=== PATIENT | male | born 1985 | race Caucasian/White ===

== ENCOUNTER 2021-12-04 08:11 | Outpatient (CLI) | payer OTHER, SELFPAY ==
--- NOTE | 2021-12-04 08:14 | CT_ITS ---
WS: [id number] CT LUMBAR SPINE, noncontrast. HISTORY: CHRONIC LOW BACK PAIN TECHNIQUE: Contiguous 2.5 mm axial imaging are performed. Sagittal and coronal reformats are submitte d and reviewed. [facility] CT [facility] one of these dose optimization techni ques: automated exposure control; mA and/or kV adjustment per patient size (includes targeted exams w here dose is matched to clinical indication); or iterative reconstruction. IV contrast: None DLP: 1786.53 mGy.cm COMPARISON: None available. Mild straightening of the normal lumbar lordosis. No lumbar vertebral body fracture. Unilateral RIGHT L5-S1 lumbar fusion. Interbody spacer at L5-S1 with moderate narrowing of the disc space. L1-2: Normal. L2-3: Normal. L3-4: Normal. L4-5: Mild annular disc bulging. Mild ligamentum flavum and facet arthritis. Mild widening of the fac et joints. Asymmetric disc bulging is encroaching into the LEFT lateral thecal sac and LEFT foramen w ith contact on the traversing LEFT L5 nerve root. Mild LEFT foraminal and subarticular recess stenosi s. L5-S1: Hypertrophic bone formation extends from RIGHT S1 towards the RIGHT lumbar vertebral body. The re is significant bony hypertrophy encroaching towards L5 from S1 level causing a significant narrowi ng of the RIGHT L5-S1 facet joint. Mild disc bulging of L5. Moderate osseous RIGHT foraminal narrowin g. Marked degenerative changes at the RIGHT L5-S1 facet joint with bony hypertrophy. Nonobstructing LEFT renal calculi. CT/CT lumbar spine wo con* [id number] IMPRESSION: 1. RIGHT unilateral L5-S1 posterior lumbar fusion. 2. Moderate RIGHT bony foraminal narrowing at L5-S1. Partial lumbarization of the RIGHT L5-S1 vertebral body. 3. Mild LEFT foraminal subarticular recess stenosis at L4-5.
== END 2021-12-04 08:12 | disposition home or self-care (01) ==
LOC: RAD 08:12
PROVIDERS: Visit Provider Emergency Medicine Emergency Medical Services
DX: M48.00 Spinal stenosis, site unspecified (principal)
CPT/HCPCS: 72131

== ENCOUNTER 2023-06-26 06:00 | Outpatient (RCR) | payer OTHER, SELFPAY | END 2023-07-07 23:59 | disposition home or self-care (01) | LOC: SPT 06:00 | PROVIDERS: Visit Provider Family Medicine | DX: M54.9 Dorsalgia, unspecified (principal) | CPT/HCPCS: 97110; 97161 ==

== ENCOUNTER 2023-07-08 06:00 | Outpatient (RCR) | payer OTHER, SELFPAY | END 2023-07-22 23:59 | disposition home or self-care (01) | LOC: SPT 06:00 | PROVIDERS: Visit Provider Family Medicine | DX: M54.9 Dorsalgia, unspecified (principal) | CPT/HCPCS: 97110 ==

== ENCOUNTER 2023-07-18 11:36 | Inpatient (IN) | payer OTHER, SELFPAY ==
[2023-07-18] VITALS (11 sets, daily range): BP systolic 111–155; BP diastolic 74–110; PULSE 88–134; RESP 16–19; TEMP 36.4–36.8; O2SAT 91–97; BMI 28.7; BMI 28.4
--- NOTE | 2023-07-18 11:54 | CT_ITS ---
WS: [id number] CT ABDOMEN AND PELVIS WITH CONTRAST HISTORY: abd pain TECHNIQUE: Imaging performed of the abdomen and pelvis with IV contrast. Single phase imaging of the abdomen. Coronal and sagittal reformats are submitted. All CT scans at [facility] use at [address] one of these dose optimization techniques: automated exposure control; mA and/or kV adjustment per patient size (includes targeted exams where dose is matched to clinical indication); or iterative re construction. IV CONTRAST: Omnipaque 350; 100 mL IV. Oral contrast: No DLP: 954.43 mGy.cm COMPARISON: None available. Lower thorax: Lung bases are clear. Heart is normal size. No hiatal hernia. Liver/biliary system: Normal size liver. There is a small amount of ascites adjacent to the RIGHT lob e of the liver. Gallbladder: Normal. No gallstones or wall thickening. No pericholecystic fluid. Pancreas: Normal size pancreas and pancreatic duct. No adjacent inflammation. Spleen: Normal size spleen. No mass or infarct. Adrenal glands: Normal. Right kidney: Normal. Left kidney: No obstruction. 10 mm cyst. Aorta: Normal. Lymphadenopathy: None. Free fluid: There is a small amount of free fluid adjacent to the liver and also within the pelvis. T here are a few small pockets of fluid within the central mesentery. GI tract: Stomach is nondistended. Fluid-filled small bowel loops measuring up to 2.5 cm. There is a significant change in caliber in the proximal to mid small bowel and the distal small bowel suggestin g high-grade obstruction. Site of obstruction is not definitely identified. There is a focal area of fecalization within the RIGHT small bowel. This is often seen within at the site of the obstruction. There is also adjacent fluid within the mesentery. The colon is collapsed. No free air. Abdominal wall: Unremarkable abdominal wall. No hernia. Pelvis: Small amount of free fluid in the pelvis. Nondistended urinary bladder. Bones: Postoperative changes at L5-S1. IMPRESSION: 1. Moderate small bowel obstruction. There is a significant change in caliber of the mid and distal small bowel. The site of the obstruction is not definitely identified but there is a loop containing fecalization of small bowel in the RIGHT abdomen which is often seen at the transition site. There ar e also several pockets of mesenteric fluid in the RIGHT abdomen which may indicate the site of the ob struction. 2. Small amount of free fluid in the pelvis and along the RIGHT lobe of the liver.
--- NOTE | 2023-07-18 12:05 | ED_ITS ---
HPI - Abdominal Pain 2 General: Chief Complaint: Abdominal Pain Stated Complaint: abd pain Time Seen by Provider: 07/18/23 11:54 Source: patient Mode of arrival: ambulatory Limitations: no limitations History of Present Illness: 38-year-old male states he has been havi ng epigastric abdominal pain since this morning. He states his pain is sharp in nature rates it a 8 out of 10. He states had a history of gastritis he is closely getting scheduled for scope. He denies any fevers denies any worsening proving factors. Associated Symptoms: Denies chills, diarrhea, fever(s), nausea and vomiting Review of Systems 2 Const: Denies: fever(s), chills, body aches or change in appetite ENMT: Denies: throat pain or dental pain Card: Denies: chest pain Resp: Denies: dyspnea GI: Reports: abdominal pain; Denies: nausea, vomiting or diarrhea Musc: Denies: neck pain or back pain Skin/Breast: Denies: rash Neuro: Denies: headache(s) Physical Exam 2 Const: COMMON NORMALS: no acute distress, patient oriented x3 and healthy appearing HENMT: COMMON NORMALS: normocephalic and atraumatic HEAD & SCALP: n ormocephalic and atraumatic Neck/C-Spine: COMMON NORMALS: full ROM and supple Chest: COMMONS NORMALS: normal inspection of the chest Resp: COMMON NORMALS: normal respiratory effort Cardio: COMMON NORMALS: regular rate, regular rhythm and No murmurs present (Cardio) RATE: regular rate RHYTHM: regular rhythm GI: COMMON NORMALS: Normal to inspection, nondistended, normoactive bowel sounds present, Soft to palpation and no masses PALPATION: Yes Soft to palpation OTHER: epigastric tenderness Extremity: COMMON NORMALS: normal to inspection and full ROM Neuro: COMMON NORMALS: patient oriented x3, moves all extremities and no focal motor deficits Psych: COMMON NORMALS: mental status grossly normal, Normal thought process present and cooperative THOUGHT PROCESS: Normal thought process present Skin: COMMON NORMALS: no rashes or lesions noted and no wounds GENERAL SKIN EXAM: no rashes or lesions noted Course 2 Vital Signs: Vital signs: Vital Signs Temperature 97.5 F L 07/18/23 11:46 Pulse Rate 134 H 07/18/23 11:46 Respiratory Rate 17 07/18/23 12:20 Blood Pressure 111/80 07/18/23 11:46 Pulse Oximetry 93 07/18/23 12:20 Oxygen Delivery Me thod Room Air 07/18/23 11:46 MDM - Abdominal Pain Medical Decision Making Patient presents here with abdominal pain he was found to have a small bowel obstruction we will place NG tube up spoke to general surgery low hospitalist will admit at this time. Medical Records I reviewed the patient's medical records. Lab Data I reviewed the patient's lab results. 07/18/23 12:16 07/18/23 12:16 Labs/Radiology: Laboratory Results WBC 14.72 10^3/uL (3.29-11.43) H 07/18/23 12:16 RBC 6.70 10^6/uL (3.85-5.65) H 07/18/23 12:16 Hgb 19.10 g/dL (11.27-16.99) H 07/18/23 12:16 Hct 54.9 % (37-53) H 07/18/23 12:16 MCV 81.9 fl (82-101) L 07/18/23 12:16 MCH 28.5 pg (27-33) 07/18/23 12:16 MCHC 34.8 g/dL (30-55) 07/18/23 12:16 RDW 12.6 % (12.1-15.1) 07/18/23 12:16 Plt Count 434 10^3/cmm (157-399) H 07/18/23 12:16 MPV 9.0 fL (7.4-10.4) 07/18/23 12:16 Neut % (Auto) 75.1 % 07/18/23 12:16 Lymph % (Auto) 16.2 % 07/18/23 12:16 Toole % (Auto) 7.1 % 07/18/23 12:16 Eos % (Auto) 0.5 % 07/18/23 12:16 Baso % (Auto) 0.7 % 07/18/23 12:16 Neut # (Auto) 11.05 10^3/uL (1.8-7.7) H 07/18/23 12:16 Lymph # (Auto) 2.4 10^3/uL (0.8-4.8) 07/18/23 12:16 Toole # (Auto) 1.1 10^3/uL (0.2-0.9) H 07/18/23 12:16 Eos # (Auto) 0.1 10^3/uL (0.0-0.8) 07/18/23 12:16 Baso # (Auto) 0.1 10^3/uL (0.0-0.1) 07/18/23 12:16 Nucleated RBC % (auto) 0 % 07/18/23 12:16 Nucleated RBCs # 0.0 /100WBC 07/18/23 12:16 Sodium 137 mmol/L (136-145) 07/18/23 12:16 Potassium 4.4 mmol/L (3.5-5.1) 07/18/23 12:16 Chloride 97 mmol/L (98-107) L 07/18/23 12:16 Carbon Dioxide 23 mmol/L (22-29) 07/18/23 12:16 Anion Gap 21.4 (5-19) H 07/18/23 12:16 BUN 18 mg/dL (6-20) 07/18/23 12:16 Creatinine 1.1 mg/dL (0.7-1.2) 07/18/23 12:16 GFR Calculation 74.5 mL/min (90-130) L 07/18/23 12:16 Glucose 122 mg/dL (65-115) H 07/18/23 12:16 Calculated Osmolality 287 mOsm/kg (285-295) 07/18/23 12:16 Calcium 10.1 mg/dL (8.5-10.5) 07/18/23 12:16 Total Bilirubin 1.4 mg/dL (0.15-1.2) H 07/18/23 12:16 AST 32 U/L (0-40) 07/18/23 12:16 ALT 58 U/L (0-41) H 07/18/23 12:16 Alkaline Phosphatase 108 U/L (40-130) 07/18/23 12:16 Total Protein 8.4 g/dL (6.6-8.7) 07/18/23 12:16 Albumin 4.8 g/dL (3.5-5.2) 07/18/23 12:16 Globulin 3.6 g/dL (1.3-4.6) 07/18/23 12:16 Lipase 43 U/L (13-60) 07/18/23 12:16 All radiology interpretation(s) finalized by discharge Discharge Plan Discharge Patient Disposition: Admitted As Inpatient Clinical Impression: Small bowel obstruction Condition: Stable Coding Level of Care Code ED [employer] for Robert Escobar
[2023-07-18] MEDS: ondansetron 2 mg/ML SDV 2 mL 4 MG IVP (12:20)
[2023-07-18] MEDS: morphine 4 mg/mL SDV 1 mL IVP (12:20)
[2023-07-18] MEDS: sodium chloride 0.9% 1,000 ML 999 ML IV (12:24)
[2023-07-18 12:46] LABS: Basophils # 0.1 10^3/uL (0.0-0.1); Basophils % 0.7 %; Eosinophils # 0.1 10^3/uL (0.0-0.8); Eosinophils % 0.5 %; Hematocrit 54.9 % (37-53); Lymphocytes # 2.4 10^3/uL (0.8-4.8); Lymphocytes % 16.2 %; Mean Corpuscular HGB Conc 34.8 g/dL (30-55); Mean Corpuscular Hemoglobin 28.5 pg (27-33); Mean Corpuscular Volume 81.9 fl (82-101); Monocytes # 1.1 10^3/uL (0.2-0.9); Monocytes % 7.1 %; Neutrophils # 11.05 10^3/uL (1.8-7.7); Neutrophils % 75.1 %; Nucleated Red Blood Cells % 0 %; Platelet Count 434 10^3/cmm (157-399); Red Cell Distribution Width 12.6 % (12.1-15.1); White Blood Count 14.72 10^3/uL (3.29-11.43)
[2023-07-18 13:06] LABS: Alanine Aminotransferase 58 U/L (0-41); Albumin Level 4.8 g/dL (3.5-5.2); Alkaline Phosphatase 108 U/L (40-130); Blood Urea Nitrogen 18 mg/dL (6-20); Calcium 10.1 mg/dL (8.5-10.5); Carbon Dioxide 23 mmol/L (22-29); Chloride 97 mmol/L (98-107); Creatinine Clr Calc Pharmacy 108.4281; Globulin 3.6 g/dL (1.3-4.6); Glomerular Filtration Rate 74.5 mL/min (90-130); Glucose 122 mg/dL (65-115); Lipase 43 U/L (13-60); Osmolality Calculated 287 mOsm/kg (285-295); Sodium 137 mmol/L (136-145); Total Bilirubin 1.4 mg/dL (0.15-1.2); Total Protein 8.4 g/dL (6.6-8.7)
[2023-07-18] MEDS: iohexol 350 mg/mL 500 mL Btl (per mL) IV (13:07)
[2023-07-18 13:10] LABS: Anion Gap 21.4 (5-19); Aspartate Amino Transferase 32 U/L (0-40); Potassium 4.4 mmol/L (3.5-5.1)
[2023-07-18] MEDS: LORazepam 2 mg/mL INJ 10 mL MDV 1 MG IVP (13:49)
--- NOTE | 2023-07-18 14:23 | XR_ITS ---
WS: [id number] Portable AP upright chest, 07/18/2023 Clinical Data: NG TUBE PLACEMENT Comparison: None. Findings: The nasogastric tube appears to end within the fundus of the stomach. The heart and lungs s how no acute change. Impression: Insertion of nasogastric tube ending in the fundus of stomach.
[2023-07-18 15:10] LABS: Blood Urine 2+ (Negative); Glucose Urine UA Norm (Normal); Ketones Urine 1+ (Negative); Protein Urine 1+ (Negative); Urine Appearance Clear (CLEAR); Urine Color Yellow (Yellow); pH Urine 7 (5-7)
[2023-07-18] MEDS: labetalol 5 mg/mL SDV 20mL 10 MG IVP (15:10)
[2023-07-18 15:11] LABS: Add Urine Culture? No; Add Urine Microscopic? YES; Bilirubin Urine 1+ (Negative); Leukocyte Esterase Urine Trace (Negative); Nitrate Urine Not Tested (Negative); RBC Urine 0-4 /hpf (0-2); Urobilinogen Urine Neg (Negative)
--- NOTE | 2023-07-18 15:48 | P.HP_ITS ---
Providers/Chief Complaint 2 Admitting Physician: Sarah Manley MD Chief Complaint: abd pain History of Present Illness Nargis Hampton is a 38 year old male who presents for evaluation of abdominal pain that started this morning. Patient reports the pain is in the epigastric area nonradiating, constant and associated with nausea and vomiting. He denies fever, chills, chest pain, melena, hematemesis, diarrhea, constipation or any other symptoms. He reports that his last bowel movement was yesterday. In the ER, CT of the chest abdomen pelvis shows evidence of small bowel obstruction. NG tube was placed in the ER. General surgery consulted. Review of Systems 2 General: Reports: 10 or more systems reviewed and unremarkable except in HPI and below Const: Denies: fever(s), chills, body aches or change in appetite ENMT: Denies: throat pain or dental pain Card: Denies: chest pain Resp: Denies: dyspnea GI: Reports: abdominal pain, nausea and vomiting; Denies: diarrhea Musc: Denies: neck pain or back pain Skin/Breast: Denies: rash Neuro: Denies: headache(s) Medications/Allergies Home Medications Medication Instructions Recorded Confirmed Last Taken Type capsaicin 0.075 % topical cream 1 applic topical TID PRN Pain 07/18/23 07/18/23 Unknown History cetirizine 10 mg tablet 10 mg PO DAILY 07/18/23 07/18/23 Unknown History clonazepam 0.5 mg tablet 0.5 mg PO BID PRN Anxiety 07/18/23 07/18/23 Unknown History clotrimazole 1 % topical solution 1 applic topical TID 07/18/23 07/18/23 Unknown History divalproex 500 mg tablet,extended 1,500 mg PO BEDTIME 07/18/23 07/18/23 Unknown History release 24 hr ergocalciferol (vitamin D2) 1,250 1,250 mcg PO Q7D 07/18/23 07/18/23 Unknown History mcg (50,000 unit) capsule fluticasone propionate 50 1 spray intranasal DAILY 07/18/23 07/18/23 Unknown History mcg/actuation nasal spray,suspension lidocaine 5 % topical patch 1 patch topical DAILY 07/18/23 07/18/23 Unknown History meloxicam 7.5 mg tablet 7.5 mg PO DAILY 07/18/23 07/18/23 Unknown History methocarbamol 750 mg tablet 750 mg PO QID PRN Muscle Spasm 07/18/23 07/18/23 Unknown History pantoprazole 20 mg tablet,delayed 20 mg PO DAILY 07/18/23 07/18/23 Unknown History release zinc oxide 40 % topical ointment 1 applic topical 6XD PRN Rash 07/18/23 07/18/23 Unknown History Allergies Allergy/AdvReac Type Severity Reaction Status Date / Time No Known Allergies Allergy Verified 07/18/23 11:48 Vitals/I&O/Wt Last Vital Signs Temp 97.5 F L 07/18/23 11:46 Pulse 101 H 07/18/23 15:11 Resp 19 H 07/18/23 15:11 BP 132/104 07/18/23 15:11 Pulse Ox 91 07/18/23 15:11 O2 Del Method Room Air 07/18/23 15:11 Weight last 48 hrs Weight 96.162 kg Physical Exam 2 Const: COMMON NORMALS: no acute distress, patient oriented x3 and alert HENMT: COMMON NORMALS: normocephalic, atraumatic, external ears normal, Normal external nose present, moist oral mucous membranes and oropharynx normal HEAD & SCALP: normocephalic and atraumatic NOSE: Normal external nose present E XTERNAL EAR: Yes external ears normal Eye: COMMON NORMALS: Equal, round and reactive pupils present, EOMs intact bilaterally, conjunctivae normal and no scleral icterus CONJUNCTIVA: Yes conjunctivae normal PUPIL: Yes Equal, round and reactive pupils present Neck/C-Spine: COMMON NORMALS: full ROM, no lymphadenopathy and no JVD Chest: COMMONS NORMALS: normal inspection of the chest Resp: COMMON NORMALS: normal respiratory effort and clear to auscultation bilaterally AUSCULTATION: clear to auscultation bilaterally OTHER: No wheezes or crcakles Cardio: COMMON NORMALS: no JVD, regular rate, regular rhythm, S1 normal heart sound present and S2 normal heart sound present RATE: regular rate RHYTHM: regular rhythm HEART SOUNDS: S1 normal heart sound present and S2 normal heart sound present GI: PALPATION: Yes Soft to palpation OTHER: Mildly distended, soft, epigastric tenderness , no rebound or guarding, bowel sounds hypoactive Extremity: COMMON NORMALS: normal to inspection and no pedal edema Neuro: COMMON NORMALS: patient oriented x3 SENSORIUM/ORIENTATION: Yes alert OTHER: No gross focal deficits Data 07/18/23 12:16 07/18/23 12:16 A&P Assessment and plan (1) Small bowel obstruction: - Patient presented with abdominal pain and was found to have small bowel obstruction. Patient does have a history of appendectomy only in the past. - -General surgery consulted -NG tube in place for bowel decompression , patient will be kept n.p.o. -Continue supportive care with IV fluids, antiemetics, analgesia -Serial abdominal exams -Continue to monitor (2) History of gastroesophageal reflux (GERD): - Patient is on p.o. Protonix at home -He reports that he is scheduled for endoscopy outpatient -Give IV protonix for now (3) History of posttraumatic stress disorder (PTSD): - Continue depakote Attestations 2 Medical Necessity Statement*: Patient requires inpatient hospitalization for small bowel obstruction. He requires IV fluids, IV pain medications , NG tube decompression and surgical evaluation as appropriate Coding Level of Care Code Acute Code for [facility] Fwd Diagnoses Small bowel obstruction K56.609 History of gastroesophageal reflux (GERD) Z87.19 History of posttraumatic stress disorder (PTSD) Z86.59
--- NOTE | 2023-07-18 16:15 | PC.NURSE ---
Dr. Manley gave verbal orders while in patients room to do a 500 ml bolus of Ns then changed fluids to D5 45 ns. Also to discontinue lovenox until Dr. Porras sees patient. Will do SCDs
[2023-07-18] MEDS: sodium chloride 0.9% 500 ML IV (17:15)
[2023-07-18] MEDS: pantoprazole 40 mg SDV IVP (17:16)
[2023-07-18] MEDS: morphine 4 mg/mL SDV 1 mL 1 MG IVP ×2 (19:42→21:55)
[2023-07-18] MEDS: dextrose 5%-sod chloride 0.45% 1,000 ML 100 ML IV (22:00)
[2023-07-19] VITALS (14 sets, daily range): BP systolic 114–141; BP diastolic 76–92; PULSE 61–93; RESP 16–18; TEMP 36.6–37.2; O2SAT 92–95
[2023-07-19] MEDS: morphine 4 mg/mL SDV 1 mL 1 MG IVP (00:25)
[2023-07-19] MEDS: morphine 4 mg/mL SDV 1 mL 2 MG IVP ×4 (02:24→11:10)
[2023-07-19 03:11] LABS: Basophils # 0.1 10^3/uL (0.0-0.1); Basophils % 0.5 %; Eosinophils # 0.1 10^3/uL (0.0-0.8); Eosinophils % 1.5 %; Hematocrit 48.5 % (37-53); Lymphocytes # 2.3 10^3/uL (0.8-4.8); Lymphocytes % 23.6 %; Mean Corpuscular HGB Conc 33.4 g/dL (30-55); Mean Corpuscular Hemoglobin 28.2 pg (27-33); Mean Corpuscular Volume 84.5 fl (82-101); Mean Platelet Volume 8.8 fL (7.4-10.4); Monocytes # 0.9 10^3/uL (0.2-0.9); Monocytes % 9.5 %; Neutrophils # 6.16 10^3/uL (1.8-7.7); Neutrophils % 64.5 %; Nucleated Red Blood Cells % 0 %; Platelet Count 324 10^3/cmm (157-399); Red Blood Count 5.74 10^6/uL (3.85-5.65); Red Cell Distribution Width 12.9 % (12.1-15.1); White Blood Count 9.56 10^3/uL (3.29-11.43)
[2023-07-19 03:31] LABS: Anion Gap 13.1 (5-19); Blood Urea Nitrogen 17 mg/dL (6-20); Calcium 8.6 mg/dL (8.5-10.5); Carbon Dioxide 26 mmol/L (22-29); Chloride 102 mmol/L (98-107); Creatinine Clr Calc Pharmacy 131.8337; Glomerular Filtration Rate 93.9 mL/min (90-130); Glucose 119 mg/dL (65-115); Magnesium 2.3 mg/dL (1.7-2.3); Osmolality Calculated 287 mOsm/kg (285-295); Phosphorus 3.8 mg/dL (2.5-4.5); Potassium 4.1 mmol/L (3.5-5.1); Sodium 137 mmol/L (136-145)
--- NOTE | 2023-07-19 08:47 | P.PN_ITS ---
Subjective 2 Subjective: No acute events reported overnight. Patient seen at his bedside, he continues to report abdominal pain and some nausea NGT remains in place, with about 460cc output . Medications: Reviewed: Yes Vitals/I&O/Wt Last Vital Signs Temp 97.9 F 07/19/23 07:45 Pulse 84 07/19/23 07:45 Resp 16 07/19/23 07:45 BP 122/84 07/19/23 07:45 Pulse Ox 93 07/19/23 07:45 O2 Del Method Room Air 07/19/23 07:45 07/18/23 07/19/23 07/19/23 22:59 06:59 14:59 Intake Total 1500 / 1500 0 / 1500 Output Total 230 / 230 230 / 460 Balance 1270 / 1270 -230 / 1040 Weight last 48 hrs Weight 98.566 kg Weight 95.056 kg Weight 96.162 kg Physical Exam 2 Const: COMMON NORMALS: no acute distress, patient oriented x3 and alert HENMT: COMMON NORMALS: normocephalic, atraumatic, external ears normal, Normal external nose present, moist oral mucous membranes and oropharynx normal HEAD & SCALP: normocephalic and atraumatic NOSE: Normal external nose present E XTERNAL EAR: Yes external ears normal Eye: COMMON NORMALS: Equal, round and reactive pupils present, EOMs intact bilaterally, conjunctivae normal and no scleral icterus CONJUNCTIVA: Yes conjunctivae normal PUPIL: Yes Equal, round and reactive pupils present Neck/C-Spine: COMMON NORMALS: full ROM, no lymphadenopathy and no JVD Chest: COMMONS NORMALS: normal inspection of the chest Resp: COMMON NORMALS: normal respiratory effort and clear to auscultation bilaterally AUSCULTATION: clear to auscultation bilaterally OTHER: No wheezes or crcakles Cardio: COMMON NORMALS: no JVD, regular rate, regular rhythm, S1 normal heart sound present and S2 normal heart sound present RATE: regular rate RHYTHM: regular rhythm HEART SOUNDS: S1 normal heart sound present and S2 normal heart sound present GI: COMMON NORMALS: Normal to inspection, nondistended, normoactive bowel sounds present, Soft to palpation and non-tender PALPATION: Yes Soft to palpation OTHER: Mildly distended, soft, epigastric tenderness , no rebound or guarding, bowel sounds hypoactive Extremity: COMMON NORMALS: normal to inspection and no pedal edema Neuro: COMMON NORMALS: patient oriented x3 SENSORIUM/ORIENTATION: Yes alert OTHER: No gross focal deficits Data 07/19/23 02:50 07/19/23 02:50 A&P Assessment and plan (1) Small bowel obstruction: - Patient presented with abdominal pain and was found to have small bowel obstruction. Patient does have a history of appendectomy in the past. - -General surgery consulted -NG tube in place for bowel decompression , will continue n.p.o. -Continue supportive care with IV fluids, antiemetics, analgesia -Serial abdominal exams -Continue to monitor (2) History of gastroesophageal reflux (GERD): -Patient is on p.o. Protonix at home -He reports that he is scheduled for endoscopy outpatient -He is having epigastric pain -Increase IV protonix to twice daily (3) History of posttraumatic stress disorder (PTSD): - Continue depakote Attestations 2 Medical Necessity Statement*: Patient will continue inpatient hospitalization for small bowel obstruction. He requires IV fluids, IV pain medications , NG tube decompression and surgical intervention as appropriate Coding Level of Care Code Acute Code for [facility] Fwd Diagnoses Small bowel obstruction K56.609 History of gastroesophageal reflux (GERD) Z87.19 History of posttraumatic stress disorder (PTSD) Z86.59
[2023-07-19] MEDS: pantoprazole 40 mg SDV IVP (08:54)
[2023-07-19] MEDS: dextrose 5%-sod chloride 0.45% 1,000 ML 100 ML IV ×2 (08:54→18:32)
--- NOTE | 2023-07-19 09:08 | PC.CHAP ---
Pastoral Care Encounter/Spiritual Assessment Type of Contact [] Declined restoration silversmith visit [] Patient/Family/Request visit [] Outpatient visit [] Follow-up visit [] Physician referral [] Code/Alert [x] Routine visit [] Staff referral [] Actively dying [] Patient sleeping [] Family support [] [] Out of room [] Palliative care [] [] Receiving care in room [] Pre-surgical visit [] Trauma [] Long length of stay [] ICU visit [] Other: Relational/Emotional Strength [x] Patient feels connected with others/family/visitors/staff [] Distress [] Loneliness/isolation [] Abandonment Spirituality of Patient [x] Person of Jovita [] Attends Adventism of their Jovita [x] Believes in Prayer [] Reads Bible or Methodist materials [] There are Spiritual issues to be addressed [employer] Sl[employer] Operator Interventions [x] Prayer [x] Active listening [] Non-anxious presence [x] Spiritual/emotional support [] Crisis/trauma care [] Spiritual counseling [] Bereavement support [] Provided bereavement packet [] Provided Bible/devotional materials [] Provided toy/stuffed animal, coloring book to patient or family member [] Provided Communion [] Anointing/[place] [] Salvation [x] Completed spiritual assessment [] Other: Impact on Illness or Injury [] Angry [] Fearful [] Anxious [] Often cries [] Exhaustion [] Unable to work [] Unable to attend alevism [] Unable to walk/stand [] Unable to read [] Unable to drive [] Unable to eat/drink [] Unable to sleep [] Unable to be with family [] Patient intubated [] Other: Summary Time spent with patient 5 min
[2023-07-19] MEDS: oxyCODONE-APAP 5-325 mg Tablet 1 TAB PO ×2 (14:15→20:09)
--- NOTE | 2023-07-19 15:00 | PM.CONSULT ---
Providers/Reason For Consult Consulting Physician/Specialty*: Dr. Robert Porras, DO/General surgery Reason for Consult*: Small bowel obstruction Attending Physician: Sarah Manley MD History of Present Illness History of Present Illness Nargis Hampton is a 38 year old male who presented to the hospital with 1 day history of diffuse abdominal pain. Palpation makes the pain worse. Nothing makes pain better. The pain does not radiate. He reports that he has not had a bowel movement or passed flatus in the last 24 hours. He does report some nausea but denies any emesis. He has never had a bowel obstruction before and the only surgery on his abdomen was an appendectomy. CT of the abdomen and pelvis shows a small bowel obstruction Review of Systems General: Reports: 10 or more systems reviewed and unremarkable except in HPI and below Medications/Allergies Home Medications Medication Instructions Recorded Confirmed Last Taken Type capsaicin 0.075 % topical cream 1 applic topical TID PRN Pain 07/18/23 07/18/23 Unknown History cetirizine 10 mg tablet 10 mg PO DAILY 07/18/23 07/18/23 Unknown History clonazepam 0.5 mg tablet 0.5 mg PO BID PRN Anxiety 07/18/23 07/18/23 Unknown History clotrimazole 1 % topical solution 1 applic topical TID 07/18/23 07/18/23 Unknown History divalproex 500 mg tablet,extended 1,500 mg PO BEDTIME 07/18/23 07/18/23 Unknown History release 24 hr ergocalciferol (vitamin D2) 1,250 1,250 mcg PO Q7D 07/18/23 07/18/23 Unknown History mcg (50,000 unit) capsule fluticasone propionate 50 1 spray intranasal DAILY 07/18/23 07/18/23 Unknown History mcg/actuation nasal spray,suspension lidocaine 5 % topical patch 1 patch topical DAILY 07/18/23 07/18/23 Unknown History meloxicam 7.5 mg tablet 7.5 mg PO DAILY 07/18/23 07/18/23 Unknown History methocarbamol 750 mg tablet 750 mg PO QID PRN Muscle Spasm 07/18/23 07/18/23 Unknown History pantoprazole 20 mg tablet,delayed 20 mg PO DAILY 07/18/23 07/18/23 Unknown History release zinc oxide 40 % topical ointment 1 applic topical 6XD PRN Rash 07/18/23 07/18/23 Unknown History Allergies Allergy/AdvReac Type Severity Reaction Status Date / Time No Known Allergies Allergy Verified 07/18/23 11:48 Current Medications Generic Name Dose Route Start Last Admin Trade Name Freq PRN Reason Stop Dose Admin Divalproex Sodium 1,500 mg 07/18/23 21:00 07/19/23 20:09 Divalproex Er 500 Mg Tablet (24h) PO 1,500 mg BEDTIME SULY Administration Dextrose/Sodium Chloride 1,000 mls @ 175 mls/hr 07/18/23 16:15 07/20/23 06:30 Dextrose 5%-Sod Chloride 0.45% IV 100 mls/hr .[id number] SULY Administration Morphine Sulfate 2 mg 07/19/23 01:38 07/19/23 11:10 Morphine 4 Mg/Ml Sdv 1 Ml IVP 2 mg Q2H PRN Administration SEVERE PAIN Pantoprazole Sodium 40 mg 07/20/23 09:15 07/20/23 09:13 Pantoprazole 40 Mg Sdv IVP 40 mg Q12H SULY Administration Phenol 3 spray 07/19/23 23:49 07/20/23 00:09 Phenol Oral [place] 177 Ml MUCOUS MEM 3 spray Q2H PRN Administration SORE THROAT Vitals/I&O/Wt Last Vital Signs Temp 97.7 F 07/20/23 12:18 Pulse 103 H 07/20/23 12:18 Resp 20 H 07/20/23 12:18 BP 132/88 07/20/23 12:18 Pulse Ox 95 07/20/23 12:18 O2 Del Method Room Air 07/20/23 12:18 07/20/23 07/20/23 07/20/23 06:59 14:59 22:59 Intake Total 1196.667 / 3160.000 480 / 480 Output Total 1000 / 1000 500 / 500 Balance 196.667 / 2160.000 -20 / -20 Weight last 48 hrs Weight 215 lb Weight 217 lb 4.8 oz Physical Exam Narrative: General : Patient is well developed , no acute distress, oriented x3 Head : Normal cephalic, a-traumatic. Ears : Pinnae and external canal are normal. Hearing is normal. Eyes : PERRLA, Sclera and injection are normal. No conjunctival discharge. Nose : Mucous membranes are without erythema. Throat : buccal mucosa is normal, gums are without significant recession or hypertrophy. Lungs : Equal chest rise bilaterally, no use of accessory muscles, trachea is midline. Cor : Rate and rhythm are normal. Abdomen : Soft, distended, diffusely tender to palpation, no g/r/m Extremities : No edema, no cyanosis or clubbing, dorsalis pedis pulses are present bilaterally, non-tender to palpation of calves. Upper extremities are normal bilaterally. Back : non-tender to palpation, no CVA tenderness. Neuro : CN II - XII intact, Upper and lower extremities have equal and full strength Data 07/19/23 02:50 07/20/23 02:42 A&P Assessment and plan (1) Small bowel obstruction: Plan NPO/NGT to LIWS IV fluids Await return of bowel function If he does not begin passing gas and/or having bowel movements in the next few days, we will have to consider diagnostic laparoscopy versus exploratory laparotomy Medical management per hospitalist Coding Level of Care Code 69387 Diagnoses Small bowel obstruction K56.609
[2023-07-19] MEDS: divalproex ER 500 mg Tablet (24H) 1500 MG PO (20:09)
[2023-07-20] MEDS: phenol oral Spray 177 mL 3 SPRAY MUCOUS MEM (00:09)
[2023-07-20] MEDS: dextrose 5%-sod chloride 0.45% 1,000 ML 100 ML IV ×3 (00:47→16:50)
--- NOTE | 2023-07-20 02:10 | XRR_ITS ---
PROCEDURE INFORMATION: Exam: XR Chest Exam date and time: 07/20/2023 1:16 AM Age: 38 years old Clinical indication: Device placement; Ng tube; Patient HX: Reverification of ng placement TECHNIQUE: Imaging protocol: Radiologic exam of the chest. Views: 1 view. COMPARISON: CR XR chest 1V portable [id number] 07/18/2023 2:35 PM FINDINGS: Tubes, catheters and devices: There has been some retraction the enteral tube. Sump port is just above the GE junction. Lungs: Linear opacities at the left lung base are new suggesting atelectasis. Pleural spaces: No pleural effusion. No pneumothorax. Heart/Mediastinum: Cardiac silhouette is normal in size for technique. Bones/joints: Age appropriate. XR/XR chest 1V portable [id number] IMPRESSION: Sump port of the enteral tube is near the GE junction. Consider advancing the device approximately 4 cm to situate the sump port in the gastric lumen.
--- NOTE | 2023-07-20 02:13 | ECG_ITS ---
[facility] Test Date: 2023-07-20 Pat Name: Nargis Hampton Department: Room: 254 Gender: Male Pediatric Clinical Dietician: : 1985 Requested By: Harvinder Perez Order Number: [id number] Anna MD: Anai Govea M.D. Measurements Intervals [place] Rate: 81 P: 15 AL: 171 QRS: 18 QRSD: 89 T: 44 QT: 385 QTc: 448 Interpretive Statements SINUS RHYTHM No previous ECG available for comparison Electronically Signed On 07-20-2023 13:42:41 CDT by Anai Govea M.D. [id number]
--- NOTE | 2023-07-20 02:21 | PC.NURSE ---
Pt c/o of SOB and feeling like there is something in his throat. LCTA bilaterally, abd distended w/hyperactive BS. Pt states he feels like he needs to have a BM, but is just passing gas. EKG performed and shows NS. VSS. Notified Dr. Sheldon for CXR for feeling like something is in the pt's throat, state CXR performed awaiting radiology reading. Pt states he feels like he is full of gas. Pt encouraged to ambulate in hallway for further distance rather than just in his room to help with bowel motility. Pt is currently ambulating in hallway, pt is not in distress.
[2023-07-20 02:36] LABS: Glucose Point of Care 104 mg/dL (70-110)
--- NOTE | 2023-07-20 03:07 | XRR_ITS ---
PROCEDURE INFORMATION: Exam: XR Chest Exam date and time: 07/20/2023 2:15 AM Age: 38 years old Clinical indication: Device placement; Patient HX: Check S/P advancement of ng tube; Additional info: Check ng advancement TECHNIQUE: Imaging protocol: Radiologic exam of the chest. Views: 1 view. COMPARISON: CR (CHEST, ) 07/20/2023 1:16 AM FINDINGS: Tubes, catheters and devices: Enteral tube is in satisfactory position. Lungs: Stable minor atelectasis at the left lung base. Pleural spaces: No pleural effusion. No pneumothorax. Heart/Mediastinum: Cardiac silhouette is normal in size for technique. Bones/joints: Age appropriate. XR/XR chest 1V portable [id number] IMPRESSION: Enteral tube is in satisfactory position.
[2023-07-20 03:42] VITALS: BP 138/88; PULSE 87; RESP 18; TEMP 36.8; O2SAT 92
--- NOTE | 2023-07-20 03:42 | PC.NURSE ---
NG advanced approximately 4cm per CXR reading of being JE junction. Repeat CXR shows proper NG placement. Pt tolerated procedure fair.
[2023-07-20 04:11] LABS: Albumin Level 3.6 g/dL (3.5-5.2); Anion Gap 11.8 (5-19); Blood Urea Nitrogen 10 mg/dL (6-20); Calcium 8.4 mg/dL (8.5-10.5); Carbon Dioxide 28 mmol/L (22-29); Chloride 101 mmol/L (98-107); Creatinine Clr Calc Pharmacy 133.3711; Glomerular Filtration Rate 93.9 mL/min (90-130); Glucose 126 mg/dL (65-115); Phosphorus 2.7 mg/dL (2.5-4.5); Potassium 3.8 mmol/L (3.5-5.1); Sodium 137 mmol/L (136-145)
[2023-07-20 07:34] VITALS: BP 141/73; PULSE 92; RESP 18; TEMP 36.3; O2SAT 95
--- NOTE | 2023-07-20 08:59 | PM.PN ---
Subjective Subjective: Patient had episode of chest pain, SOB overnight. He reports symptoms started after he received oxycodone . Symptoms currently resolved. Chest x-ray showed no acute process. EKG negative for STEMI. Patient seen at his bedside, he continues to report abdominal pain and some nausea. NGT remains in place, with about 250cc output . Medications: Reviewed: Yes Vitals/I&O/Wt Last Vital Signs Temp 97.4 F L 07/20/23 07:34 Pulse 92 07/20/23 07:34 Resp 18 07/20/23 07:34 BP 141/73 07/20/23 07:34 Pulse Ox 95 07/20/23 07:34 O2 Del Method Room Air 07/20/23 07:34 07/19/23 07/20/23 07/20/23 22:59 06:59 14:59 Intake Total 963.333 / 2605.650 9893.667 / 3160.000 Output Total 1000 / 1000 Balance 963.333 / 1963.333 196.667 / 2160.000 Weight last 48 hrs Weight 97.522 kg Weight 98.566 kg Weight 95.056 kg Weight 96.162 kg Physical Exam Const: COMMON NORMALS: no acute distress, patient oriented x3 and alert HENMT: COMMON NORMALS: normocephalic, atraumatic, external ears normal, Normal external nose present, moist oral mucous membranes and oropharynx normal HEAD & SCALP: normocephalic and atraumatic NOSE: Normal external nose present EXTERNAL EAR: Yes external ears normal Eye: COMMON NORMALS: Equal, round and reactive pupils present, EOMs intact bilaterally, conjunctivae normal and no scleral icterus CONJUNCTIVA: Yes conjunctivae normal PUPIL: Yes Equal, round and reactive pupils present Neck/C-Spine: COMMON NORMALS: full ROM, no lymphadenopathy and no JVD Chest: COMMONS NORMALS: normal inspection of the chest Resp: COMMON NORMALS: normal respiratory effort and clear to auscultation bilaterally AUSCULTATION: clear to auscultation bilaterally OTHER: No wheezes or crcakles Cardio: COMMON NORMALS: no JVD, regular rate, regular rhythm, S1 normal heart sound present and S2 normal heart sound present RATE: regular rate RHYTHM: regular rhythm HEART SOUNDS: S1 normal heart sound present and S2 normal heart sound present GI: COMMON NORMALS: Normal to inspection, nondistended, normoactive bowel sounds present, Soft to palpation and non-tender PALPATION: Yes Soft to palpation OTHER: Mildly distended, soft, epigastric tenderness , no rebound or guarding, bowel sounds hypoactive Extremity: COMMON NORMALS: normal to inspection and no pedal edema Neuro: COMMON NORMALS: patient oriented x3 SENSORIUM/ORIENTATION: Yes alert OTHER: No gross focal deficits Data 07/19/23 02:50 07/20/23 02:42 A&P Assessment and plan (1) Small bowel obstruction: - Patient presented with abdominal pain and was found to have small bowel obstruction. Patient does have a history of appendectomy in the past. - -General surgery consulted -NG tube in place for bowel decompression , will continue n.p.o. -Continue supportive care with IV fluids, antiemetics, analgesia -Serial abdominal exams -Continue to monitor (2) History of gastroesophageal reflux (GERD): -Patient is on p.o. Protonix at home -He reports that he is scheduled for endoscopy outpatient -He is having epigastric pain -Increase IV protonix to twice daily (3) History of posttraumatic stress disorder (PTSD): - Continue depakote Plan #Transient episode of chest pain , SOB -Patient reports symptoms occurred after he received oxycodone - Chest x-ray showed no acute process. EKG negative for STEMI. -Symptoms currently resolved -Ct to monitor Attestations Medical Necessity Statement*: Patient will continue inpatient hospitalization for small bowel obstruction. He requires IV fluids, IV pain medications , NG tube decompression and surgical intervention as appropriate Coding Level of Care Code Acute Code for [facility] Diagnoses Small bowel obstruction K56.609 History of gastroesophageal reflux (GERD) Z87.19 History of posttraumatic stress disorder (PTSD) Z86.59
[2023-07-20] MEDS: pantoprazole 40 mg SDV IVP (09:13)
[2023-07-20 12:18] VITALS: BP 132/88; PULSE 103; RESP 20; TEMP 36.5; O2SAT 95
--- NOTE | 2023-07-20 16:04 | P.PN_ITS ---
Subjective 2 Subjective: Patient still reports diffuse abdominal pain but he did pass flatus this morning and then had a bowel movement. Vitals/I&O/Wt Last Vital Signs Temp 97.7 F 07/20/23 12:18 Pulse 103 H 07/20/23 12:18 Resp 20 H 07/20/23 12:18 BP 132/88 07/20/23 12:18 Pulse Ox 95 07/20/23 12:18 O2 Del Method Room Air 07/20/23 12:18 07/20/23 07/20/23 07/20/23 06:59 14:59 22:59 Intake Total 1196.667 / 3160.000 480 / 480 Output Total 1000 / 1000 500 / 500 Balance 196.667 / 2160.000 -20 / -20 Weight last 48 hrs Weight 215 lb Weight 217 lb 4.8 oz Physical Exam 2 Narrative: General: No acute distress, awake alert and oriented x 3 Abdomen: Distended, diffusely tender to palpation, no guarding or rebound Data 07/19/23 02:50 07/20/23 02:42 A&P Assessment and plan (1) Small bowel obstruction: Plan His obstruction appears to be resolving, however he is still quite distended and tender Full liquid diet for now. I will reassess tomorrow. If if his abdominal exam is better, I will advance him to a soft diet Attestations 2 Medical Necessity Statement*: Per primary Coding Level of Care Code 12288 Diagnoses Small bowel obstruction K56.609
[2023-07-20 16:45] VITALS: BP 121/78; PULSE 96; RESP 20; TEMP 36.4; O2SAT 94
[2023-07-20 19:27] VITALS: BP 131/82; PULSE 97; RESP 18; TEMP 37.2; O2SAT 95
[2023-07-20] MEDS: divalproex ER 500 mg Tablet (24H) 1500 MG PO (19:53)
[2023-07-20] MEDS: pantoprazole DR 40 mg Tablet PO (19:53)
[2023-07-20] MEDS: CLONazepam 0.5 mg Tablet PO (19:53)
[2023-07-20 23:25] VITALS: BP 104/70; PULSE 93; RESP 18; TEMP 37.2; O2SAT 92
[2023-07-21 03:32] VITALS: BP 124/82; PULSE 69; RESP 18; TEMP 36.9; O2SAT 96
[2023-07-21 03:50] LABS: Albumin Level 3.8 g/dL (3.5-5.2); Anion Gap 13.4 (5-19); Blood Urea Nitrogen 8 mg/dL (6-20); Calcium 8.9 mg/dL (8.5-10.5); Carbon Dioxide 26 mmol/L (22-29); Chloride 103 mmol/L (98-107); Creatinine Clr Calc Pharmacy 133.3711; Glomerular Filtration Rate 93.9 mL/min (90-130); Glucose 89 mg/dL (65-115); Phosphorus 3.5 mg/dL (2.5-4.5); Potassium 3.4 mmol/L (3.5-5.1); Sodium 139 mmol/L (136-145)
[2023-07-21 08:00] VITALS: BP 111/72; PULSE 104; RESP 16; TEMP 36.8; O2SAT 95
[2023-07-21] MEDS: potassium chloride ER 20 mEq Tablet 40 MEQ PO (08:42)
[2023-07-21] MEDS: pantoprazole DR 40 mg Tablet PO (08:42)
[2023-07-21 12:00] VITALS: BP 150/99; PULSE 91; RESP 18; TEMP 36.7; O2SAT 91
--- NOTE | 2023-07-21 14:37 | PM.DCS ---
Discharge Providers Date of Admission: 07/18/23 14:43 Date of Discharge: July 21, 2023 Attending Provider at Admission: Sarah Manley MD Attending Provider at Discharge: Sarah Manley MD Diagnoses at Discharge Discharge Diagnosis (1) Small bowel obstruction: Status: Acute Reason for Visit Reason for Visit: abd pain Hospital Course Hospital Course In summary, Mr Nargis Hampton is a 38 year old male who presented for evaluation of abdominal pain. In the ER, CT of the chest abdomen pelvis showed evidence of small bowel obstruction. He was admitted for further evaluation and management. Patient was managed conservatively with NGT, bowel rest and he had improvement in his symptoms. He was evaluated by general surgery and no surgical intervention was recommended. Patient's symptoms resolved and he was able to tolerate p.o. intake. He was discharged to follow-up with his PCP and general surgery outpatient. Physical Exam Const: COMMON NORMALS: no acute distress, patient oriented x3 and alert HENMT: COMMON NORMALS: normocephalic, atraumatic, external ears normal, Normal external nose present, moist oral mucous membranes and oropharynx normal HEAD & SCALP: normocephalic and atraumatic NOSE: Normal external nose present EXTERNAL EAR: Yes external ears normal Eye: COMMON NORMALS: Equal, round and reactive pupils present, EOMs intact bilaterally, conjunctivae normal and no scleral icterus CONJUNCTIVA: Yes conjunctivae normal PUPIL: Yes Equal, round and reactive pupils present Neck/C-Spine: COMMON NORMALS: full ROM, no lymphadenopathy and no JVD Chest: COMMONS NORMALS: normal inspection of the chest Resp: COMMON NORMALS: normal respiratory effort and clear to auscultation bilaterally AUSCULTATION: clear to auscultation bilaterally OTHER: No wheezes or crcakles Cardio: COMMON NORMALS: no JVD, regular rate, regular rhythm, S1 normal heart sound present and S2 normal heart sound present RATE: regular rate RHYTHM: regular rhythm HEART SOUNDS: S1 normal heart sound present and S2 normal heart sound present GI: COMMON NORMALS: Normal to inspection, nondistended, normoactive bowel sounds present, Soft to palpation and non-tender PALPATION: Yes Soft to palpation OTHER: Soft , non tender , no rebound or guarding, bowel sounds normal Extremity: COMMON NORMALS: normal to inspection and no pedal edema Neuro: COMMON NORMALS: patient oriented x3 SENSORIUM/ORIENTATION: Yes alert OTHER: No gross focal deficits Discharge Data Studies Completed and Pending Completed Studies During Hospitalization Category Date Time Status CT abdomen pelvis w con* [id number] Stat Cat Scan 07/18/23 11:54 Completed XR chest 1V portable [id number] Stat Exams 07/18/23 14:23 Completed XR chest 1V portable [id number] Stat Exams 07/20/23 02:10 Completed XR chest 1V portable [id number] Stat Exams 07/20/23 03:07 Completed Radiology Impressions Chest X-Ray 07/20/23 03:07 IMPRESSION: Enteral tube is in satisfactory position. Laboratory Results WBC 9.56 10^3/uL (3.29-11.43) 07/19/23 02:50 RBC 5.74 10^6/uL (3.85-5.65) H 07/19/23 02:50 Hgb 16.20 g/dL (11.27-16.99) 07/19/23 02:50 Hct 48.5 % (37-53) 07/19/23 02:50 MCV 84.5 fl (82-101) 07/19/23 02:50 MCH 28.2 pg (27-33) 07/19/23 02:50 MCHC 33.4 g/dL (30-55) 07/19/23 02:50 RDW 12.9 % (12.1-15.1) 07/19/23 02:50 Plt Count 324 10^3/cmm (157-399) 07/19/23 02:50 MPV 8.8 fL (7.4-10.4) 07/19/23 02:50 Neut % (Auto) 64.5 % 07/19/23 02:50 Lymph % (Auto) 23.6 % 07/19/23 02:50 [place] % (Auto) 9.5 % 07/19/23 02:50 Eos % (Auto) 1.5 % 07/19/23 02:50 Baso % (Auto) 0.5 % 07/19/23 02:50 Neut # (Auto) 6.16 10^3/uL (1.8-7.7) 07/19/23 02:50 Lymph # (Auto) 2.3 10^3/uL (0.8-4.8) 07/19/23 02:50 [place] # (Auto) 0.9 10^3/uL (0.2-0.9) 07/19/23 02:50 Eos # (Auto) 0.1 10^3/uL (0.0-0.8) 07/19/23 02:50 Baso # (Auto) 0.1 10^3/uL (0.0-0.1) 07/19/23 02:50 Nucleated RBC % (auto) 0 % 07/19/23 02:50 Nucleated RBCs # 0.0 /100WBC 07/19/23 02:50 Sodium 139 mmol/L (136-145) 07/21/23 02:29 Potassium 3.4 mmol/L (3.5-5.1) L 07/21/23 02:29 Chloride 103 mmol/L (98-107) 07/21/23 02:29 Carbon Dioxide 26 mmol/L (22-29) 07/21/23 02:29 Anion Gap 13.4 (5-19) 07/21/23 02:29 BUN 8 mg/dL (6-20) 07/21/23 02:29 Creatinine 0.9 mg/dL (0.7-1.2) 07/21/23 02:29 GFR Calculation 93.9 mL/min (90-130) 07/21/23 02:29 Glucose 89 mg/dL (65-115) 07/21/23 02:29 POC Glucose 104 mg/dL (70-110) 07/20/23 02:32 Calculated Osmolality 287 mOsm/kg (285-295) 07/19/23 02:50 Lactic Acid 2.0 mmol/L (0.5-2.2) 07/18/23 12:16 Calcium 8.9 mg/dL (8.5-10.5) 07/21/23 02:29 Phosphorus 3.5 mg/dL (2.5-4.5) 07/21/23 02:29 Magnesium 2.0 mg/dL (1.7-2.3) 07/20/23 02:42 Total Bilirubin 1.4 mg/dL (0.15-1.2) H 07/18/23 12:16 AST 32 U/L (0-40) 07/18/23 12:16 ALT 58 U/L (0-41) H 07/18/23 12:16 Alkaline Phosphatase 108 U/L (40-130) 07/18/23 12:16 Total Protein 8.4 g/dL (6.6-8.7) 07/18/23 12:16 Albumin 3.8 g/dL (3.5-5.2) 07/21/23 02:29 Globulin 3.6 g/dL (1.3-4.6) 07/18/23 12:16 Lipase 43 U/L (13-60) 07/18/23 12:16 Urine Color Yellow (Yellow) 07/18/23 14:43 Urine Appearance Clear (CLEAR) 07/18/23 14:43 Urine pH 7 (5-7) 07/18/23 14:43 Ur Specific [place] 1.000 (1.005-1.030) L 07/18/23 14:43 Urine Protein 1+ (Negative) H 07/18/23 14:43 Urine Glucose (UA) Norm (Normal) 07/18/23 14:43 Urine Ketones 1+ (Negative) H 07/18/23 14:43 Urine Blood 2+ (Negative) H 07/18/23 14:43 Urine Nitrate Not tested (Negative) A 07/18/23 14:43 Urine Bilirubin 1+ (Negative) H 07/18/23 14:43 Urine Urobilinogen Neg mg/dL (Negative) 07/18/23 14:43 Ur Leukocyte Esterase Trace (Negative) H 07/18/23 14:43 Urine RBC 0-4 /hpf (0-2) H 07/18/23 14:43 Urine WBC None /hpf (0-5) 07/18/23 14:43 Ur Squamous Epith Cells None /hpf (0-5) 07/18/23 14:43 Amorphous Sediment Not Reportable 07/18/23 14:43 Urine Bacteria None /hpf (NONE) 07/18/23 14:43 Vitals Last Vital Signs Temp 98.1 F 07/21/23 12:00 Pulse 91 07/21/23 12:00 Resp 18 07/21/23 12:00 BP 150/99 07/21/23 12:00 Pulse Ox 91 07/21/23 12:00 O2 Del Method Room Air 07/21/23 08:00 Discharge Plan Discharge Patient Disposition: Home Condition: Stable Prescriptions: Continued cetirizine 10 mg Tablet 10 mg PO DAILY clonazepam 0.5 mg Tablet 0.5 mg PO BID PRN (Reason: Anxiety) capsaicin 0.075 % Cream 1 applic TOPICAL TID PRN (Reason: Pain) Rx Instructions: do not wash area for at least 30 min after application pantoprazole 20 mg Tablet,Delayed Release (Dr/Ec) 20 mg PO DAILY methocarbamol 750 mg Tablet 750 mg PO QID PRN (Reason: Muscle Spasm) divalproex 500 mg Tablet Extended Release 24 Hr 1,500 mg PO BEDTIME lidocaine 5 % Adhesive Patch,Medicated 1 patch TOPICAL DAILY Rx Instructions: leave on most painful area for up to 12 hrs clotrimazole 1 % Solution 1 applic TOPICAL TID ergocalciferol (vitamin D2) 1,250 mcg (50,000 unit) Capsule 1,250 mcg PO Q7D fluticasone propionate 50 mcg/actuation [place],Suspension 1 spray INTRANASAL DAILY Rx Instructions: administer into each nostril zinc oxide 40 % Ointment 1 applic TOPICAL 6XD PRN (Reason: Rash) Discontinued meloxicam 7.5 mg Tablet 7.5 mg PO DAILY Discharge Orders: Discharge Order (Routine); Ordered 07/21/23 Ordered By: Sarah Manley Referrals: Robert Porras DO [Physician] - 08/07/23 2:00 pm Lisette Grant MD [Referring] - (Please call Saturday morning to schedule a hospital follow up appointment within 1 week. ) Discharge Diet: GI Soft Discharge Activity: Increase activity as tolerated Patient Instructions: Bowel Obstruction (GEN), Opioid Safety Discharge Attestations Time Spent in Discharge Care*: greater than 30 min Quality Metrics Clinical Quality Measures [ No reported AMI, CVA or VTE this stay] Coding Level of Care Code Acute Code for [facility] Diagnoses Small bowel obstruction K56.609
[2023-07-21 15:44] VITALS: BP 150/99; PULSE 91; RESP 18; TEMP 36.7; O2SAT 91
== END 2023-07-21 15:45 | disposition home or self-care (01) | DRG 390 ==
LOC: ER 13:45 → MEDSURG 14:44
PROVIDERS: Admitting Provider Student in an Organized Health Care Education/Training Program; Emergency Provider Emergency Medicine; Visit Provider Student in an Organized Health Care Education/Training Program
DX: K56.609 Unspecified intestinal obstruction, unspecified as to partial versus complete obstruction (principal); K21.9 Gastro-esophageal reflux disease without esophagitis; F43.12 Post-traumatic stress disorder, chronic; R07.9 Chest pain, unspecified; R06.02 Shortness of breath; Z90.49 Acquired absence of other specified parts of digestive tract
CPT/HCPCS: 12345; 36415; 36416; 71045; 74177; 80048; 80053; 80069; 81001; 82962; 83605; 83690; 83735; 84100; 85025; 93005; 96374; 96375; 99285; C9113; J2060; J2270; J2405; J3490; J7030; J7040; J7799; Q9967

== ENCOUNTER 2023-08-16 08:16 | Outpatient (CLI) | payer OTHER, SELFPAY | END 2023-08-16 08:17 | disposition home or self-care (01) | LOC: LAB 08:16 | PROVIDERS: PCP Family Medicine; Visit Provider Family Medicine | DX: Z87.19 Personal history of other diseases of the digestive system (principal); R10.9 Unspecified abdominal pain | CPT/HCPCS: 82274 ==

== ENCOUNTER 2023-09-10 06:36 | Day surgery (SDC) | payer OTHER, SELFPAY ==
--- NOTE | 2023-09-10 06:20 | W.PM.OPSFHP ---
Same Day Surgery H&P Indication for Procedure/HPI DATE OF PROCEDURE: September 10, 2023 CHIEF COMPLAINT/INDICATIONFOR SURGICAL PROCEDURE: positive FIT test and abdominal pain PREOP DIAGNOSIS: Abdominal pain PLANNED PROCEDURE: Operation Date: 09/10/23 07:45 Proposed Procedures p EGD 14913, 21797, G0105, K92.1, Z87.19(Not Applicable) - Jourdan Bailey MD s Colonoscopy(Not Applicable) - Jourdan Bailey MD Medications/Allergies* Home Medications Medication Instructions Recorded Confirmed Type cetirizine 10 mg tablet 10 mg PO DAILY 07/18/23 09/05/23 History clonazepam 0.5 mg tablet 0.5 mg PO BID PRN Anxiety 07/18/23 09/05/23 History clotrimazole 1 % topical solution 1 applic topical TID 07/18/23 09/05/23 History divalproex 500 mg tablet,extended 1,500 mg PO BEDTIME 07/18/23 09/05/23 History release 24 hr ergocalciferol (vitamin D2) 1,250 1,250 mcg PO Q7D 07/18/23 09/05/23 History mcg (50,000 unit) capsule lidocaine 5 % topical patch 1 patch topical DAILY 07/18/23 09/05/23 History methocarbamol 750 mg tablet 750 mg PO QID PRN Muscle Spasm 07/18/23 09/05/23 History pantoprazole 20 mg tablet,delayed 20 mg PO DAILY 07/18/23 09/05/23 History release Allergies/Adverse Reactions Allergy/AdvReac Type Severity Reaction Status Date / Time oxycodone Allergy ADR-Anxiety Verified 09/05/23 13:55 Pertinent History/Comorbid Conditions* Family History (Updated 08/07/23 @ 14:15 by Cate Jordan MA) Diabetes Father Mother CAD (coronary artery disease) Father Mother Cancer Mother Hypertension Father Mother Stroke Father Social History Smoking and tobacco/nicotine status: tobacco/nicotine user, details unknown (working on quitting) cigarettes Packs smoked per day: 0.5 Years cigarettes smoked: 20 Quit status (tobacco/nicotine): has tried quititng Number of times tried to quit tobacco: 3 Second hand smoke exposure: No Alcohol intake: current Alcohol intake frequency: few times a week Alcohol type: beer Substance/Drug Use: never Pertinent Exam Findings alert, oriented x 3 and clear to auscultation bilaterally Recommendations Surgery/Procedure today Coding Level of Care Code Acute Code for [facility]
[2023-09-10 06:48] VITALS: BP 144/109; PULSE 85; RESP 18; TEMP 36.6; O2SAT 95; BMI 28.5
[2023-09-10] MEDS: sodium chloride 0.9% 1,000 ML 30 ML IV (07:09)
--- NOTE | 2023-09-10 08:10 | ANES.PREANE2 ---
Pre-Anesthetic Assessment Height/Weight: Height 1.83 m Weight 95.254 kg Temp Pulse Resp BP Pulse Ox O2 Del Method 98 F 85 18 144/109 95 Room Air 09/10/23 06:48 09/10/23 06:48 09/10/23 06:48 09/10/23 06:48 09/10/23 06:48 09/10/23 06:48 Preop Diagnosis: Abdominal pain Operation Date: 09/10/23 07:45 Proposed Procedures p EGD 26981, 60964, G0105, K92.1, Z87.19(Not Applicable) - Jourdan Bailey MD s Colonoscopy(Not Applicable) - Jourdan Bailey MD Familial anesthetic complications: none Was Beta Kristal taken within 24 hours: N/A Was Clonidine taken within 24 hours: N/A Last intake: Intake Last Liquid Date 09/09/23 Last Liquid Time 22:30 Last Solid Date 09/08/23 Last Solid Time 19:00 Last Intake: 22:30 Social Alcohol (social) and Tobacco (stop 1 month ago) Exam alert, oriented x 3, clear to auscultation bilaterally and regular rate & rhythm Airway Submandibular: within normal limits Cervical ROM: within normal limits Mallampati: Class II Dentition: full Pulmonary None reported CV/HEM None reported None reported Hepatic None reported GI Gastroesophageal Reflux Disease Metabolic None reported Musc/skel Lower Back Pain and None reported Neuropsych Anxiety and Depression Anesthetic Plan ASA status: 2 Anesthesia: MAC Risk of > 500 ml blood loss (7ml/kg in children): No Medications/Allergies Home Medications Medication Instructions Recorded Confirmed Last Taken Type cetirizine 10 mg tablet 10 mg PO DAILY 07/18/23 09/05/23 09/08/23 History clonazepam 0.5 mg tablet 0.5 mg PO BID PRN Anxiety 07/18/23 09/05/23 09/07/23 History clotrimazole 1 % topical solution 1 applic topical TID 07/18/23 09/10/23 1 Week Ago History ~09/03/23 divalproex 500 mg tablet,extended 1,500 mg PO BEDTIME 07/18/23 09/05/23 09/08/23 History release 24 hr ergocalciferol (vitamin D2) 1,250 1,250 mcg PO Q7D 07/18/23 09/05/23 09/08/23 History mcg (50,000 unit) capsule lidocaine 5 % topical patch 1 patch topical DAILY 07/18/23 09/05/23 09/04/23 History methocarbamol 750 mg tablet 750 mg PO QID PRN Muscle Spasm 07/18/23 09/05/23 09/08/23 History pantoprazole 20 mg tablet,delayed 20 mg PO DAILY 07/18/23 09/05/23 09/07/23 History release bisacodyl 5 mg tablet,delayed 5 mg PO DAILY #4 tabs 09/03/23 09/05/23 09/08/23 Rx release (Dulcolax (bisacodyl)) Allergies Allergy/AdvReac Type Severity Reaction Status Date / Time oxycodone Allergy ADR-Anxiety Verified 09/05/23 13:55 Current Medications Generic Name Dose Route Start Last Admin Trade Name Freq PRN Reason Stop Dose Admin Sodium Chloride 1,000 mls @ 30 mls/hr 09/10/23 06:45 09/10/23 07:09 Sodium Chloride 0.9% IV 30 mls/hr .Q24H SULY Administration PFSH Anesthesia Family History (Updated 08/07/23 @ 14:15 by Cate Jordan MA) Father Diabetes Hypertension CAD (coronary artery disease) Stroke Mother Diabetes Hypertension CAD (coronary artery disease) Cancer Social History (Updated 08/07/23 @ 14:14 by Cate Jordan MA) Smoking and tobacco/nicotine status: tobacco/nicotine user, details unknown (working on quitting) cigarettes Packs smoked per day: 0.5 Years cigarettes smoked: 20 Quit status (tobacco/nicotine): has tried quititng Number of times tried to quit tobacco: 3 Second hand smoke exposure: No Alcohol intake: current Alcohol intake frequency: few times a week Alcohol type: beer Substance/Drug Use: never Data Anesthesia Cardiac Studies: No Data to Display
[2023-09-10 08:55] VITALS: BP 122/84; PULSE 92; RESP 16; TEMP 36.1; O2SAT 94
[2023-09-10 09:10] VITALS: BP 132/82; PULSE 87; RESP 16; O2SAT 95
--- NOTE | 2023-09-10 09:30 | ANE.PACU2 ---
Inpatient post-anesthesia follow up: Airway intact: Yes Vital signs: Temperature 97 F Pulse Rate 87 Respiratory Rate 16 Blood Pressure 132/82 Pulse Oximetry 95 Oxygen Delivery Me thod Room Air Oxygen Flow Rate 3 Fraction of Inspir ed Oxygen Hydration adequate: Yes Nausea and vomiting: No Pain level: 1 Mental status: Baseline
== END 2023-09-10 09:35 | disposition home or self-care (01) ==
PROVIDERS: PCP Family Medicine; Visit Provider Surgery
PROC: 0DJ08ZZ Inspection of Upper Intestinal Tract, Via Natural or Artificial Opening Endoscopic (ICD-10-PCS; CPT 43235; principal; 2023-09-10 07:45)
PROC: 0DJD8ZZ Inspection of Lower Intestinal Tract, Via Natural or Artificial Opening Endoscopic (ICD-10-PCS; CPT 45378; 2023-09-10 07:45)
DX: K92.1 Melena (principal); Z87.19 Personal history of other diseases of the digestive system; F17.210 Nicotine dependence, cigarettes, uncomplicated; K21.00 Gastro-esophageal reflux disease with esophagitis, without bleeding; K29.50 Unspecified chronic gastritis without bleeding; K62.1 Rectal polyp
CPT/HCPCS: 43239; 45380; 88305; 88342; J2704; J7030

== ENCOUNTER → 2023-09-25 13:50 | Outpatient (BNVA) | payer OTHER, SELFPAY | PROVIDERS: PCP Family Medicine; Visit Provider Surgery | DX: A04.8 Other specified bacterial intestinal infections (principal); Z87.19 Personal history of other diseases of the digestive system | CPT/HCPCS: 99212 ==

== ENCOUNTER 2023-10-28 20:00 | Outpatient (CLI) | payer OTHER, SELFPAY | END 2023-10-28 20:01 | disposition home or self-care (01) | LOC: SLEEP 23:16 | PROVIDERS: PCP Family Medicine; Visit Provider Family Medicine | DX: R06.83 Snoring (principal) | CPT/HCPCS: 95810; 99204 ==

== ENCOUNTER → 2023-12-16 08:52 | Outpatient (BNVA) | payer OTHER, SELFPAY | PROVIDERS: PCP Family Medicine; Referring Provider Family Medicine; Visit Provider Psychiatry & Neurology Neurology | DX: R41.3 Other amnesia (principal); S06.9XAA Unspecified intracranial injury with loss of consciousness status unknown, initial encounter; Z86.59 Personal history of other mental and behavioral disorders; X58.XXXA Exposure to other specified factors, initial encounter; E55.9 Vitamin D deficiency, unspecified; G47.33 Obstructive sleep apnea (adult) (pediatric); Z99.89 Dependence on other enabling machines and devices; E87.6 Hypokalemia | CPT/HCPCS: 36415; 82140; 82607; 82746; 83090; 83735; 83921; 84132; 84439; 84443; 84481; 99203; 99204 ==

== ENCOUNTER → 2024-01-03 11:00 | Outpatient (BNVA) | payer OTHER, SELFPAY | PROVIDERS: PCP Family Medicine; Visit Provider Psychiatry & Neurology Neurology | DX: G93.40 Encephalopathy, unspecified (principal); R41.3 Other amnesia; S06.9XAA Unspecified intracranial injury with loss of consciousness status unknown, initial encounter; X58.XXXA Exposure to other specified factors, initial encounter | CPT/HCPCS: 95816; 95819 ==

== ENCOUNTER 2024-01-13 12:55 | Outpatient (CLI) | payer OTHER, SELFPAY ==
--- NOTE | 2024-01-13 13:00 | MR_ITS ---
WS: [id number] MRI BRAIN WITH AND WITHOUT CONTRAST HISTORY: Z86.59 - Personal history of other mental and behavioral ... COMPARISON: CT head 08/09/2023 TECHNIQUE: Multiplanar imaging performed through the brain with MultiHance 20 ml's IV. No acute infarcts are seen. Ham-white matter differentiation is well preserved. No hemosiderin from prior trauma. No focal atrophy or small vessel disease or ischemic changes. No susceptibility artifacts or prior lacunar infarcts. Ventricles and extra-axial spaces are normal. Clivus and pituitary gland are normal. Visualized posterior fossa and brainstem are also normal. Postcontrast images are negative for masses or vascular malformations. Dural venous sinuses are normal. Paranasal sinuses: Well aerated with no significant disease. Mastoid air cells: Normal. Calvarium and scalp: Normal. MR/MR head wo/w con [id number] IMPRESSION: 1. No acute infarct or hemorrhage. 2. No masses or volume loss. 3. No hemosiderin. 4. No prior infarct.
[2024-01-13] MEDS: gadobenate dimeglumine 20 mL vial IV (13:41)
== END 2024-01-13 12:56 | disposition home or self-care (01) ==
LOC: RAD 12:56
PROVIDERS: PCP Family Medicine; Visit Provider Psychiatry & Neurology Neurology
DX: Z86.59 Personal history of other mental and behavioral disorders (principal); R41.3 Other amnesia
CPT/HCPCS: 70553

== ENCOUNTER → 2024-01-22 13:07 | Outpatient (BNVA) | payer OTHER, SELFPAY | PROVIDERS: PCP Family Medicine; Visit Provider Nurse Practitioner | DX: M25.561 Pain in right knee (principal); S83.206A Unspecified tear of unspecified meniscus, current injury, right knee, initial encounter; X58.XXXA Exposure to other specified factors, initial encounter; M25.562 Pain in left knee; R03.0 Elevated blood-pressure reading, without diagnosis of hypertension | CPT/HCPCS: 73560; 73565; 99204 ==

== ENCOUNTER 2024-02-12 09:09 | Outpatient (CLI) | payer OTHER, SELFPAY ==
--- NOTE | 2024-02-12 09:30 | MR_ITS ---
WS: [id number] MRI RIGHT KNEE HISTORY: rigth knee pain and instability COMPARISON: Knee 01/22/2024 Anterior cruciate ligament: Intact. Posterior cruciate ligament: Intact. Medial collateral ligament: Intact. Posterior lateral corner structures: Intact. Medial menisci: Intact. Normal signal, size and shape. Lateral meniscus: Intact. Normal signal, size and shape. Extensor mechanism: Distal quadriceps tendon and patellar tendons are intact. Fluid and soft tissue: Small joint effusion. No Marina's cyst. Osseous and articular structures: Patellofemoral compartment: Normal. Medial compartment: Mild narrowing and mild fissuring of the cartilage. Very subtle area of delaminat ion involving cartilage along the weightbearing surface of the anterior medial femoral condyle. Lateral compartment: Normal. MR/MR knee RT wo con* [id number] IMPRESSION: 1. No meniscal tear. 2. No ACL tear. 3. Very tiny area of cartilage delamination involving the weightbearing surfac e of the anterior medial femoral condyle.
== END 2024-02-12 09:10 | disposition home or self-care (01) ==
PROVIDERS: PCP Family Medicine; Visit Provider Nurse Practitioner
DX: S83.31XA Tear of articular cartilage of right knee, current, initial encounter (principal); X58.XXXA Exposure to other specified factors, initial encounter
CPT/HCPCS: 73721

== ENCOUNTER 2024-02-12 11:38 | Emergency (ER) | payer OTHER, SELFPAY ==
[2024-02-12] VITALS (8 sets, daily range): BP systolic 109–124; BP diastolic 76–86; PULSE 86–133; RESP 17–22; TEMP 36.7; O2SAT 91–97; BMI 29.8
--- NOTE | 2024-02-12 12:08 | XR_ITS ---
WS: [id number] XR acute abdomen series [id number] REASON FOR EXAM: abdominal pain FINDINGS: No free air or retroperitoneal air. There are short segments of gas-filled small bowel in the right abdomen, mildly distended with possib ly thickened fold pattern. There is gas in the right and transverse colon. No urinary tract calculi. No mass identified. XR/XR acute abdomen series [id number] IMPRESSION: Nonspecific small bowel gas pattern as above, however patient demonstrated a mi d small bowel obstruction on CT scan of the abdomen 07/18/2023 with changes in s emily in the right lower quadrant. Possible early or partial obstruction to be co nsidered depending on how previous small bowel obstruction was treated.
[2024-02-12 12:14] LABS: Basophils % 0.4 %; Eosinophils % 0.4 %; Hematocrit 47.8 % (37-53); Lymphocytes % 9.6 %; Mean Corpuscular HGB Conc 34.5 g/dL (30-55); Mean Corpuscular Hemoglobin 28.5 pg (27-33); Mean Corpuscular Volume 82.7 fl (82-101); Mean Platelet Volume 9.1 fL (7.4-10.4); Monocytes # 0.7 10^3/uL (0.2-0.9); Monocytes % 6.6 %; Neutrophils # 8.15 10^3/uL (1.8-7.7); Neutrophils % 82.6 %; Nucleated Red Blood Cells % 0 %; Platelet Count 364 10^3/cmm (157-399); Red Blood Count 5.78 10^6/uL (3.85-5.65); Red Cell Distribution Width 12.8 % (12.1-15.1); White Blood Count 9.87 10^3/uL (3.29-11.43)
[2024-02-12 12:22] LABS: Alanine Aminotransferase 69 U/L (0-41); Albumin Level 4.3 g/dL (3.5-5.2); Alkaline Phosphatase 108 U/L (40-130); Anion Gap 17.8 (5-19); Aspartate Amino Transferase 41 U/L (0-40); Blood Urea Nitrogen 13 mg/dL (6-20); Calcium 8.4 mg/dL (8.5-10.5); Carbon Dioxide 22 mmol/L (22-29); Chloride 101 mmol/L (98-107); Creatinine Clr Calc Pharmacy 151.6333; Globulin 2.9 g/dL (1.3-4.6); Glomerular Filtration Rate 107.6 mL/min (90-130); Glucose 114 mg/dL (65-115); Lipase 28 U/L (13-60); Osmolality Calculated 285 mOsm/kg (285-295); Potassium 3.8 mmol/L (3.5-5.1); Sodium 137 mmol/L (136-145); Total Bilirubin 0.8 mg/dL (0.15-1.2); Total Protein 7.2 g/dL (6.6-8.7)
--- NOTE | 2024-02-12 12:33 | CT_ITS ---
WS: [id number] CT ABDOMEN PELVIS TECHNIQUE: Contrast-enhanced CT of the abdomen and pelvis with coronal and sagittal reformatted image s. CLINICAL INFORMATION: Abdominal pain COMPARISON: CT 07/18/2023 DLP: 983.[address] scans at [facility] use at least one of these dose optimization techniques: automated e xposure control; mA and/or kV adjustment per patient size (includes targeted exams where dose is matc hed to clinical indication); or iterative reconstruction. FINDINGS: Diffuse fatty infiltration of the liver with hepatomegaly. Normal portal vein and splenic vein. Melissa l spleen. Small esophageal canal hernia. Normal gallbladder. No evidence of small or large bowel obst ruction. Normal pancreas. Normal portal vein and splenic vein. Normal caliber abdominal aorta. Celiac and SMA are patent. Adrenal glands are normal. Malrotation RIGHT kidney. Small bilateral renal cysts . No hydronephrosis in either kidney. Normal caliber abdominal aorta. Normal sigmoid colon. Bibasilar atelectasis. Slight patchy infiltrates in the RIGHT lower lobe appear new from 07/18/2023. Correlation for pneumonia. Stable postoperative changes lumbar spine. CT/CT abdomen pelvis w con* [id number] IMPRESSION: 1. Few patchy infiltrates in the RIGHT lower lobe laterally appears new from . Recommend correlation for pneumonia. 2. No evidence of small or large bowel obstruction. 3. Previously described small bowel obstruction has resolved. 4. 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 5. No other acute findings.
--- NOTE | 2024-02-12 12:34 | ED_ITS ---
HPI - Nausea/Vomiting/Diarrhea 2 General: Chief complaint: Nausea/Vomiting/Diarrhea Stated complaint: abd pains, vommiting Time Seen by Provider: 02/12/24 11:52 History of Present Illness: 38-year-old man who presents to the [facility] room with central abdominal pain, nausea and vomiting. This is started overnight. He said he has had some watery stools but no hard stools. Pain is fairly severe. He has a history of appendectomy. He then had a small bowel obstruction about a year ago. No known fevers. No chest pain. No shortness of breath. No altered mental status. Related Data Home Medications Medication Instructions Recorded Confirmed cetirizine 10 mg tablet 10 mg PO DAILY 07/18/23 01/22/24 clonazepam 0.5 mg tablet 0.5 mg PO BID PRN Anxiety 07/18/23 01/22/24 divalproex 500 mg tablet,extended 1,500 mg PO BEDTIME 07/18/23 01/22/24 release 24 hr ergocalciferol (vitamin D2) 1,250 1,250 mcg PO Q7D 07/18/23 01/22/24 mcg (50,000 unit) capsule lidocaine 5 % topical patch 1 patch topical DAILY 07/18/23 01/22/24 methocarbamol 750 mg tablet 750 mg PO QID PRN Muscle Spasm 07/18/23 01/22/24 Previous Rx's Medication Instructions Recorded bisacodyl 5 mg tablet,delayed 5 mg PO DAILY #4 tabs 09/03/23 release (Dulcolax (bisacodyl)) pantoprazole 40 mg tablet,delayed 40 mg PO BID 8 weeks #90 tabs 09/17/23 release (Protonix) sucralfate 100 mg/mL oral 10 ml PO BID 4 weeks #560 mL 09/17/23 suspension hydrocodone 5 mg-acetaminophen 325 1 tab PO Q8H PRN pain #14 tabs 02/12/24 mg tablet ondansetron 8 mg disintegrating 8 mg PO Q6H #14 tabs 02/12/24 tablet Allergies Allergy/AdvReac Type Severity Reaction Status Date / Time oxycodone Allergy ADR-Anxiety Verified 01/22/24 13:08 Review of Systems 2 Narrative: Constitutional symptoms: Negative except as documented in HPI. Skin symptoms: Negative except as documented in HPI. Eye symptoms: Negative except as documented in HPI. ENMT symptoms: Negative except as documented in HPI. Respiratory symptoms: Negative except as documented in HPI. Cardiovascular symptoms: Negative except as documented in HPI. Gastrointestinal symptoms: Negative except as documented in HPI. Genitourinary symptoms: Negative except as documented in HPI. Musculoskeletal symptoms: Negative except as documented in HPI. Neurologic symptoms: Negative except as documented in HPI. Psychiatric symptoms: Negative except as documented in HPI. Endocrine symptoms: Negative except as documented in HPI. PFSH ED 2 PFSH: Medical History (Updated 02/12/24 @ 13:46 by Eloisa Rhodes MD) Sage sign present in right knee Family History Father Diabetes Hypertension CAD (coronary artery disease) Stroke Mother Diabetes Hypertension CAD (coronary artery disease) Cancer Social History Smoking and tobacco/nicotine status: tobacco/nicotine user, details unknown (working on quitting) cigarettes Packs smoked per day: 0.5 Years cigarettes smoked: 20 Quit status (tobacco/nicotine): has tried quititng Number of times tried to quit tobacco: 3 Second hand smoke exposure: No Alcohol intake: current Alcohol intake frequency: few times a week Alcohol type: beer Substance/Drug Use: never Physical Exam 2 Narrative: EXAM NARRATIVE: General: Alert, no acute distress. Skin: Warm, dry. Head: Normocephalic, atraumatic. Neck: Supple, trachea midline. Eye: Extraocular movements are intact. Ears, nose, mouth and throat: mucosa moist. Cardiovascular: Regular, Normal peripheral perfusion. Respiratory: Lungs are clear to auscultation, respirations are non-labored, breath sounds are equal, Symmetrical chest wall expansion. Gastrointestinal: Soft, moderate mid abdominal pain Musculoskeletal: Normal ROM, no deformity. Neurological: Alert and oriented, No focal neurological deficit observed. Psychiatric: Cooperative, appropriate mood & affect. Course 2 Vital Signs: Vital signs: Vital Signs Temperature 98.0 F 02/12/24 11:46 Pulse Rate 86 02/12/24 13:00 Respiratory Rate 18 02/12/24 13:00 Blood Pressure 124/77 02/12/24 13:00 Pulse Oximetry 92 02/12/24 13:00 Oxygen Delivery Me thod Room Air 02/12/24 13:00 MDM - Nausea/Vomiting/Diarrhea Medical Decision Making Medical decision making: Differential diagnosis for this patient with nausea and vomiting including but not limited to and based on the above HPI, review of systems and physical exam: Urinary tract infection. Appendicitis. Cholecystis. colitis. small bowel obstruction. crohn's flare. pancreatitis. gastritis. peptic ulcer. cyclic vomiting. Viral illness. Influenza. COVID. - Workup - labwork and imaging ordered to evaluate, rule in and rule out above pathologies. Lab Review: Laboratory results were reviewed and interpreted by myself the emergency room physician. No leukocytosis. No anemia. No renal failure. Liver enzymes are normal. Lipase is normal. CT of the abdomen pelvis: Think is likely atelectasis in the right lower lobe. Patient has no cough or other symptoms of lung infections. No leukocytosis or other indications that he might have an infection. Abdomen shows old findings but nothing new today. Nothing acute. This was reviewed and interpreted by myself the emergency room physician. I also reviewed the radiology report. I reviewed the patient's medical record. Reexamination: Patient remained stable. No increased work of breathing. No altered mental status. No focal motor deficits. Patient says pain is much improved after pain medications. Assessment and plan: Viral gastroenteritis ?IV Dilaudid and IV Zofran. Symptoms have improved. - Discharged home - Discussed plan with patient. Answered any questions. - Evaluation and treatment of this problem were appropriate in the emergency setting. Lab Data 02/12/24 11:54 02/12/24 11:54 Radiology Impressions Chest/Abdomen X-ray 02/12/24 12:08 IMPRESSION: Nonspecific small bowel gas pattern as above, however patient demonstrated a mid small bowel obstruction on CT scan of the abdomen 07/18/2023 with changes in side in the right lower quadrant. Possible early or partial obstruction to be considered depending on how previous small bowel obstruction was treated. Abdomen/Pelvis CT 02/12/24 12:33 IMPRESSION: 1. Few patchy infiltrates in the RIGHT lower lobe laterally appears new from 07/18/2023. Recommend correlation for pneumonia. 2. No evidence of small or large bowel obstruction. 3. Previously described small bowel obstruction has resolved. 4. 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 5. No other acute findings. Laboratory Results WBC 9.87 10^3/uL (3.29-11.43) 11/06/24 11:54 RBC 5.78 10^6/uL (3.85-5.65) H 02/12/24 11:54 Hgb 16.50 g/dL (11.27-16.99) 02/12/24 11:54 Hct 47.8 % (37-53) 02/12/24 11:54 MCV 82.7 fl (82-101) 02/12/24 11:54 MCH 28.5 pg (27-33) 02/12/24 11:54 MCHC 34.5 g/dL (30-55) 02/12/24 11:54 RDW 12.8 % (12.1-15.1) 02/12/24 11:54 Plt Count 364 10^3/cmm (157-399) 02/12/24 11:54 MPV 9.1 fL (7.4-10.4) 02/12/24 11:54 Neut % (Auto) 82.6 % 02/12/24 11:54 Lymph % (Auto) 9.6 % 02/12/24 11:54 Burke % (Auto) 6.6 % 02/12/24 11:54 Eos % (Auto) 0.4 % 02/12/24 11:54 Baso % (Auto) 0.4 % 02/12/24 11:54 Neut # (Auto) 8.15 10^3/uL (1.8-7.7) H 02/12/24 11:54 Lymph # (Auto) 1.0 10^3/uL (0.8-4.8) 02/12/24 11:54 Burke # (Auto) 0.7 10^3/uL (0.2-0.9) 02/12/24 11:54 Eos # (Auto) 0.0 10^3/uL (0.0-0.8) 02/12/24 11:54 Baso # (Auto) 0.0 10^3/uL (0.0-0.1) 02/12/24 11:54 Nucleated RBC % (auto) 0 % 02/12/24 11:54 Nucleated RBCs # 0.0 /100WBC 02/12/24 11:54 Sodium 137 mmol/L (136-145) 02/12/24 11:54 Potassium 3.8 mmol/L (3.5-5.1) 02/12/24 11:54 Chloride 101 mmol/L (98-107) 02/12/24 11:54 Carbon Dioxide 22 mmol/L (22-29) 02/12/24 11:54 Anion Gap 17.8 (5-19) 02/12/24 11:54 BUN 13 mg/dL (6-20) 02/12/24 11:54 Creatinine 0.8 mg/dL (0.7-1.2) 02/12/24 11:54 GFR Calculation 107.6 mL/min (90-130) 02/12/24 11:54 Glucose 114 mg/dL (65-115) 02/12/24 11:54 Calculated Osmolality 285 mOsm/kg (285-295) 02/12/24 11:54 Calcium 8.4 mg/dL (8.5-10.5) L 02/12/24 11:54 Total Bilirubin 0.8 mg/dL (0.15-1.2) 02/12/24 11:54 AST 41 U/L (0-40) H 02/12/24 11:54 ALT 69 U/L (0-41) H 02/12/24 11:54 Alkaline Phosphatase 108 U/L (40-130) 02/12/24 11:54 Total Protein 7.2 g/dL (6.6-8.7) 02/12/24 11:54 Albumin 4.3 g/dL (3.5-5.2) 02/12/24 11:54 Globulin 2.9 g/dL (1.3-4.6) 02/12/24 11:54 Lipase 28 U/L (13-60) 02/12/24 11:54 All radiology interpretation(s) finalized by discharge Discharge Plan Discharge Patient Disposition: Home Clinical Impression: Gastroenteritis Condition: Stable Prescriptions: New hydrocodone-acetaminophen 5-325 mg tablet 1 tab PO Q8H PRN (Reason: pain) Qty: 14 0RF Rx Instructions: Take 1/2 to 1 tab every 8 hours as needed for pain ondansetron 8 mg tablet,disintegrating 8 mg PO Q6H Qty: 14 0RF Rx Instructions: Take 1/2-1 tab every 6 hours as needed for nausea and vomiting No Action bisacodyl [Dulcolax (bisacodyl)] 5 mg tablet,delayed release (DR/EC) 5 mg PO DAILY Qty: 4 0RF Rx Instructions: take as directed for colonoscopy sucralfate 100 mg/mL suspension 10 ml PO BID 28 Days Qty: 560 0RF pantoprazole [Protonix] 40 mg tablet,delayed release (DR/EC) 40 mg PO BID 56 Days Qty: 90 0RF cetirizine 10 mg Tablet 10 mg PO DAILY clonazepam 0.5 mg Tablet 0.5 mg PO BID PRN (Reason: Anxiety) methocarbamol 750 mg Tablet 750 mg PO QID PRN (Reason: Muscle Spasm) divalproex 500 mg Tablet Extended Release 24 Hr 1,500 mg PO BEDTIME lidocaine 5 % Adhesive Patch,Medicated 1 patch TOPICAL DAILY Rx Instructions: leave on most painful area for up to 12 hrs ergocalciferol (vitamin D2) 1,250 mcg (50,000 unit) Capsule 1,250 mcg PO Q7D Discharge Orders: Discharge ED (Routine); Ordered 02/12/24 Ordered By: Eloisa Rhodes Referrals: Lisette Grant MD [Primary Care Provider] - Discharge Diet: Advance as tolerated Discharge Activity: Increase activity as tolerated Patient Instructions: Gastroenteritis (ED), Acute Nausea and Vomiting (ED), Opioid Safety, Pain Management Activity Restrictions/Additional Instructions: Thank you for choosing [facility] for your healthcare needs today. Please realize this is an emergency room and that we are providing you with a medical screening exam and this may not be complete and all inclusive of all the testing and or work up that you may need to determine your ailment or severity of your illness. You have been screened and evaluated and felt safe for discharge. Health conditions do change or evolve sometimes and as such it is important that you follow up with your Primary Doctor to be re checked, 3-5 days is a general good time frame for follow up. You are always welcome to return to the ED for re assessment if your symptoms are worsening or you have new concerns Coding Level of Care Code ED Audio Visual Director for Robert Escobar
[2024-02-12] MEDS: ondansetron 2 mg/ML SDV 2 mL 8 MG IVP (12:52)
[2024-02-12] MEDS: HYDROmorphone 1 mg/mL INJ 1 mL IVP (12:53)
[2024-02-12] MEDS: iohexol 350 mg/mL 500 mL Btl (per mL) IV (13:09)
--- NOTE | 2024-02-12 13:19 | PC.PHAR ---
[facility] 02/12/24 1:18pm
[2024-02-12 14:48] LABS: Bilirubin Urine Negative (Negative); Blood Urine Negative (Negative); Glucose Urine UA Negative (Normal); Ketones Urine Negative (Negative); Leukocyte Esterase Urine Negative (Negative); Nitrate Urine Negative (Negative); Protein Urine Negative (Negative); Urine Appearance Clear (CLEAR); Urine Color Yellow (Yellow)
[2024-02-12 14:53] LABS: Bacteria Urine None Seen /hpf; RBC Urine 0-2 /hpf (0-2); Squamous Epithelial Cell Urine 0-5 /hpf (0-5); WBC Urine 0-5 /hpf (0-5)
[2024-02-12 14:58] LABS: Amphetamines Screen Urine Negative (Negative); Barbiturates Screen Urine Negative (Negative); Benzodiazepines Screen Urine Negative (Negative); Cocaine Screen Urine Negative (Negative); Opiate Screen Urine Positive (Negative); PCP Screen Urine Negative (Negative); Specific Gravity, Urine 1.045 (1.005-1.030); THC Screen Urine Negative (Negative)
== END 2024-02-12 14:27 | disposition home or self-care (01) ==
PROVIDERS: Emergency Provider Emergency Medicine; PCP Family Medicine
DX: K52.9 Noninfective gastroenteritis and colitis, unspecified (principal); F17.210 Nicotine dependence, cigarettes, uncomplicated
CPT/HCPCS: 74022; 74177; 80053; 80306; 81001; 83690; 85025; 96374; 96375; 99285; J1171; J2405

== ENCOUNTER → 2024-02-24 08:42 | Outpatient (BNVA) | payer OTHER, SELFPAY | PROVIDERS: PCP Family Medicine; Visit Provider Nurse Practitioner | DX: M17.11 Unilateral primary osteoarthritis, right knee; R03.0 Elevated blood-pressure reading, without diagnosis of hypertension | CPT/HCPCS: 20610; 99214; J1100; J2795; J3301 ==

== ENCOUNTER → 2024-04-15 11:49 | Outpatient (BNVA) | payer OTHER, SELFPAY | PROVIDERS: PCP Family Medicine; Visit Provider Nurse Practitioner | DX: M17.11 Unilateral primary osteoarthritis, right knee (principal); S83.206A Unspecified tear of unspecified meniscus, current injury, right knee, initial encounter; X58.XXXA Exposure to other specified factors, initial encounter | CPT/HCPCS: 36415; 80053; 85025 ==

== ENCOUNTER 2024-05-19 11:05 | Day surgery (SDC) | payer OTHER, SELFPAY ==
[2024-05-19] VITALS (12 sets, daily range): BP systolic 110–134; BP diastolic 75–96; PULSE 71–84; RESP 7–16; TEMP 36.3–36.7; O2SAT 94–99; BMI 30.6
[2024-05-19] MEDS: sodium chloride 0.9% 1,000 ML 30 ML IV (12:06)
[2024-05-19] MEDS: acetaminophen 1,000 MG/100 ML PIGGYBACK 400 MG IV (12:07)
[2024-05-19] MEDS: gabapentin 300 mg Capsule PO (12:08)
[2024-05-19] MEDS: CELEcoxib 200 mg Capsule 400 MG PO (12:08)
--- NOTE | 2024-05-19 12:54 | ANES.PREANE2 ---
Pre-Anesthetic Assessment Height/Weight: Height 6 ft Weight 226 lb Temp Pulse Resp BP Pulse Ox O2 Del Method 97.8 F 83 16 134/96 97 Room Air 05/19/24 11:41 05/19/24 11:41 05/19/24 11:41 05/19/24 11:41 05/19/24 11:41 05/19/24 12:12 Preop Diagnosis: Derangement of meniscus of right knee Operation Date: 05/19/24 14:00 Proposed Procedures p Knee Arthroscopy Knee Arthroscopy w/ Debridement(Right) - Elvira Pastor MD Was Beta Kristal taken within 24 hours: N/A Was Clonidine taken within 24 hours: N/A Last intake: Intake Last Liquid Date 05/18/24 Last Liquid Time 23:30 Last Solid Date 05/18/24 Last Solid Time 23:30 Social Tobacco and No alcohol Exam alert, oriented x 3, clear to auscultation bilaterally and regular rate & rhythm Airway Submandibular: within normal limits Cervical ROM: within normal limits Mallampati: Class II Dentition: full Anesthetic Plan ASA status: 3 Anesthesia: General Other: No prior issues with anesthesia NPO since yesterday History of GERD on Protonix RORO no treatment Patient has a history of PTSD and TBI Labs reviewed and acceptable for procedure Prior EKG sinus rhythm Plan for general anesthetic Medications/Allergies Home Medications ?Medication ?Instructions ?Recorded ?Confirmed ?Last Taken ?Type clonazepam 0.5 mg tablet 0.5 mg PO BID PRN Anxiety 07/18/23 05/18/24 05/18/24 History divalproex 500 mg tablet,extended 1,500 mg PO BEDTIME 07/18/23 05/18/24 05/18/24 History release 24 hr ergocalciferol (vitamin D2) 1,250 1,250 mcg PO Q7D 07/18/23 05/18/24 05/17/24 History mcg (50,000 unit) capsule lidocaine 5 % topical patch 1 patch topical DAILY 07/18/23 05/18/24 05/18/24 History methocarbamol 750 mg tablet 750 mg PO QID PRN Muscle Spasm 07/18/23 05/18/24 05/18/24 History pantoprazole 40 mg tablet,delayed 40 mg PO BID 8 weeks #90 tabs 09/17/23 05/18/24 05/18/24 Rx release (Protonix) hydrocodone 5 mg-acetaminophen 325 1 tab PO Q8H PRN pain #14 tabs 02/12/24 05/18/24 05/18/24 Rx mg tablet ondansetron 8 mg disintegrating 8 mg PO Q6H #14 tabs 02/12/24 05/18/24 Unknown Rx tablet venlafaxine 150 mg 150 mg PO QAM 05/08/24 05/18/24 05/18/24 History capsule,extended release 24 hr (Effexor XR) Allergies Allergy/AdvReac Type Severity Reaction Status Date / Time oxycodone Allergy ADR-Anxiety Verified 05/08/24 09:26 Current Medications Generic Name Dose Route Start Last Admin Trade Name Freq PRN Reason Stop Dose Admin Sodium Chloride 1,000 mls @ 30 mls/hr 05/19/24 11:30 05/19/24 12:06 Sodium Chloride 0.9% IV 05/20/24 11:29 30 mls/hr .Q24H SULY Administration PFSH Anesthesia Medical History Sage sign present in right knee Family History Father Diabetes Hypertension CAD (coronary artery disease) Stroke Mother Diabetes Hypertension CAD (coronary artery disease) Cancer Social History Smoking and tobacco/nicotine status: current every day tobacco/nicotine user cigarettes Packs smoked per day: 0.5 Years cigarettes smoked: 20 Quit status (tobacco/nicotine): has tried quititng Number of times tried to quit tobacco: 3 Second hand smoke exposure: No Alcohol intake: current Alcohol intake frequency: few times a week Alcohol type: beer Substance/Drug Use: never Data Anesthesia Cardiac Studies: No Data to Display
--- NOTE | 2024-05-19 13:15 | P.HPUD_ITS ---
Surgery/Procedure H&P Update DATE OF PROCEDURE: May 19, 2024 DATE H&P PERFORMED: 05/08/24 H&P UPDATE INFORMATION: I have reviewed H&P completed within last 30 days, I have examined patient prior to procedure, No changes to prior documentation and H&P is in [facility] EMR on date indicated PREOP DIAGNOSIS: Derangement of meniscus of right knee PRIMARY INDICATION FOR PROCEDURE: MRI RIGHT KNEE IMPRESSION: 1. No meniscal tear. 2. No ACL tear. 3. Very tiny area of cartilage delamination involving the weightbearing surface of the anterior medial femoral condyle. PLANNED PROCEDURE: Operation Date: 05/19/24 14:00 Proposed Procedures p Knee Arthroscopy Knee Arthroscopy w/ Debridement(Right) - Elvira Pastor MD Related Problem List Diagnoses (1) Derangement of meniscus of right knee:
[2024-05-19] MEDS: ceFAZolin 2,000 mg SDV 2000 MG IVP (13:53)
[2024-05-19] MEDS: ROPivacaine 0.5% SDV 30 mL 150 MG INJECTION (14:43)
[2024-05-19] MEDS: morphine 4 mg/mL SDV 1 mL 8 MG IM (14:43)
--- NOTE | 2024-05-19 15:58 | P.OP_ITS ---
Operative Report Date of procedure: May 19, 2024 Pre-op diagnosis: Right knee internal derangement with chondromalacia Post-op diagnosis: Right knee internal derangement with chondromalacia and copious synovitis Post-op findings: Significant synovitis with chondromalacia particularly of the patella, but also over the medial and lateral femoral condyles. Procedure done: Right arthroscopic knee surgery with chondroplasty patella, medial femoral condyle and lateral femoral condyle with significant synovial resection Implants: None Specimens removed/disposition: None Pathology: None Surgeon: Elvira Pastor MD Neurology Hospitalist: None Anesthesia: General (Per LMA, ASA 3) Estimated blood loss (mL): 20 Tourniquet time (min): 40 (At 250 mmHg) IV fluids (mL): 700 Urine output (mL): 0 (No [place]) Complications: None Findings: Chondromalacia of the patella to a significant degree with a small area along the medial patella which was synovial lysed as well. Additionally, there was copious synovitis and irregularity with chondromalacia of the medial and lateral femoral condyles but to a lesser degree Condition: stable Disposition: PACU (Then return to same-day surgery for discharge to home) Brief History: This 39-year-old gentleman presented to the office complaining of right knee pain. He had had cortisone injections which provided some relief. He was wearing a Velcro knee brace and complaining primarily of instability and noted that the brace helped very little with this. MRI demonstrated no meniscal tear and no ACL tear. There was a very tiny area of delamination involving the weightbearing surface of the anterior medial femoral condyle. After discussion with the patient, plans were made for arthroscopic evaluation and debridement. Risks and complications were discussed. Questions were answered and consents were reviewed with the patient. Procedure: Patient was brought to the operating theater and after undergoing adequate general anesthesia per LMA, ASA 3, the patient's right lower extremity was prepped and draped in usual fashion utilizing DuraPrep. A tourniquet was placed high on the leg prior to prepping and draping. The tourniquet was elevated prior to commencement of the surgical procedure to 250 mmHg. Total tourniquet time was 40 minutes. Elevation followed prepping and exsanguination. Prior to commencement of the surgical procedure, a surgical pause was performed. At the time of the surgical pause, we identified the site and side of surgery. We also confirm the patient's identity and appropriate and timely administration of preoperative antibiotics, Ancef 2 g. Preoperative surgical markings were also visualized at this time. Standard arthroscopic portals were utilized including superolateral, inferomedial, and inferolateral portals. The examination commenced in the suprapatellar pouch area where the patient was noted to have chondromalacia of the significant degree on the undersurface of the patella. The probe was able to be inserted into the areas of chondromalacia. Along the medial aspect of the patella, there was also an area with what appeared to be a band over the lateral aspect of the patella but it was entirely connected to the patella. It appeared to be a synovialized area of chondromalacia. This was excised using the arthroscopic shaver. The wand was then used to smooth the area as well. The arthroscope was then passed in the medial compartment where there was noted to be an intact medial meniscus. There was some chondromalacia of the femoral condyle which was smoothed with the intra-articular heat wand. The arthroscope was then passed across the notch area where anterior cruciate ligament was visualized and found to be intact. There was copious synovitis in this area requiring removal of this prior to visualization of either the medial or lateral compartments. There was further synovitis throughout the knee which was excised. This was a significant excision. The scope was passed into the lateral compartment with the knee in a [id number] position. Lateral meniscus was noted to have no evidence of tear, and it was noted to be intact to palpation. There was some chondromalacia in this compartment and this was debrided primarily with the intra-articular heat wand. Once lateral meniscus had been thus prepared it was palpated and found to be intact and not displaceable into the knee joint. Scope was then returned to the medial compartment where evaluation once again demonstrated no meniscal pathology, but there was irregularity to the anterior meniscus which was addressed with the heat wand. The meniscus was palpated and found to be not displaceable into the knee joint. The arthroscope was then returned to the patellofemoral joint where a chondroplasty was performed of the undersurface of the patella. This chondroplasty involved use of the intra-articular shaver as well as the heat wand. Once the patella had been addressed, the scope was passed back through the knee compartments to evaluate for other abnormalities. Finding none, attention was directed to closure. The knee was copiously irrigated and suctioned dry. Following this, each portal was closed with a simple suture followed by Dermabond and Tegaderm. Additionally, the knee was injected with 20 mL of half percent ropivacaine and 8 mg of morphine. Additional 10 mL of ropivacaine was placed about the portals. Sterile dressing was placed consisting of the Tegaderm followed by the Reagan wrap. Patient was returned to Recovery Room in satisfactory condition where he will be discharged home to follow-up with me in the office as scheduled. There were no complications and no specimens. Related Problem List Diagnoses (1) Chondromalacia, right knee: (2) Derangement of meniscus of right knee: (3) Synovitis of right knee:
--- NOTE | 2024-05-19 16:45 | ANE.PACU2 ---
Inpatient post-anesthesia follow up: Airway intact: Yes Vital signs: Temperature 97.8 F Pulse Rate 71 Respiratory Rate 16 Blood Pressure 119/92 Pulse Oximetry 96 Oxygen Delivery Me thod Room Air Oxygen Flow Rate 8 Fraction of Inspir ed Oxygen Hydration adequate: Yes Nausea and vomiting: No Pain level: 1 Mental status: Baseline
== END 2024-05-19 16:45 | disposition home or self-care (01) ==
PROVIDERS: PCP Family Medicine; Visit Provider Specialist
PROC: (CPT 29870; principal; 2024-05-19 14:00)
PROC: (CPT 29876; 2024-05-19 14:00)
DX: M65.961 Unspecified synovitis and tenosynovitis, right lower leg (principal); M94.261 Chondromalacia, right knee; M23.91 Unspecified internal derangement of right knee; F17.210 Nicotine dependence, cigarettes, uncomplicated; Z79.899 Other long term (current) drug therapy
CPT/HCPCS: 29876; J0131; J0690; J1171; J2250; J2270; J2704; J2795; J3010; J7030

== ENCOUNTER → 2024-06-05 09:34 | Outpatient (BNVA) | payer OTHER, SELFPAY | PROVIDERS: PCP Family Medicine; Visit Provider Nurse Practitioner | DX: Z98.890 Other specified postprocedural states (principal) | CPT/HCPCS: 99024 ==

== ENCOUNTER 2024-06-26 23:42 | Emergency (ER) | payer OTHER, SELFPAY ==
[2024-06-26 23:52] VITALS: BP 149/110; PULSE 104; RESP 16; TEMP 36.6; O2SAT 98; BMI 29.8
--- NOTE | 2024-06-27 00:50 | XRR_ITS ---
PROCEDURE INFORMATION: Exam: XR Right Knee Exam date and time: 06/27/2024 12:54 AM Age: 39 years old Clinical indication: Swelling or effusion of joint; Right; Prior surgery; Surgery date: 1-6 months; C/O pain and swelling to RT knee over last four days. Knee arthroscopy 05/19/2024. ; Additional info: Post surgical knee pain TECHNIQUE: Imaging protocol: Radiologic exam of the right knee. Views: 3 views. COMPARISON: MR knee RT wo con* [id number] 02/12/2024 9:41 AM FINDINGS: Bones/joints: Normal. Soft tissues: Normal. XR/XR knee RT 3V* [id number] IMPRESSION: No acute findings.
--- NOTE | 2024-06-27 01:43 | W.ED.EXTPRO ---
HPI - Extremity Problem General: Chief complaint: Extremity Injury, Lower Stated complaint: right knee post surg popping adn pain Time Seen by Provider: 06/27/24 01:24 Source: patient Mode of arrival: ambulatory Limitations: no limitations History of Present Illness: Patient had a recent knee surgery done by Dr. Og. Reports today he was doing his job when he stepped and felt a popping sensation in the knee and had increased pain. Still ambulatory not wearing knee brace. Came here to get checked out as he walks a good bit for work. Right knee pain Related Data Home Medications ?Medication ?Instructions ?Recorded ?Confirmed clonazepam 0.5 mg tablet 0.5 mg PO BID PRN Anxiety 07/18/23 06/05/24 divalproex 500 mg tablet,extended 1,500 mg PO BEDTIME 07/18/23 06/05/24 release 24 hr ergocalciferol (vitamin D2) 1,250 1,250 mcg PO Q7D 07/18/23 06/05/24 mcg (50,000 unit) capsule lidocaine 5 % topical patch 1 patch topical DAILY 07/18/23 06/05/24 methocarbamol 750 mg tablet 750 mg PO QID PRN Muscle Spasm 07/18/23 06/05/24 venlafaxine 150 mg 150 mg PO QAM 05/08/24 06/05/24 capsule,extended release 24 hr (Effexor XR) Previous Rx's ?Medication ?Instructions ?Recorded pantoprazole 40 mg tablet,delayed 40 mg PO BID 8 weeks #90 tabs 09/17/23 release (Protonix) hydrocodone 5 mg-acetaminophen 325 1 tab PO Q8H PRN pain #14 tabs 02/12/24 mg tablet ondansetron 8 mg disintegrating 8 mg PO Q6H #14 tabs 02/12/24 tablet diclofenac sodium 50 mg 50 mg PO TID PRN pain 5 days #15 06/27/24 tablet,delayed release tabs Allergies Allergy/AdvReac Type Severity Reaction Status Date / Time oxycodone Allergy ADR-Anxiety Verified 06/05/24 09:37 Review of Systems General: Reports: 10 or more systems reviewed and unremarkable except in HPI and below PFSH ED PFSH: Medical History (Updated 06/27/24 @ 01:45 by Jama Griffith MD) Sage sign present in right knee Surgical History (Updated 06/27/24 @ 01:45 by Jama Griffith MD) S/P right knee arthroscopy Date of procedure: May 19, 2024 Pre-op diagnosis: Right knee internal derangement with chondromalacia Procedure done: Right arthroscopic knee surgery with chondroplasty patella, medial femoral condyle and lateral femoral condyle with significant synovial resection Surgeon: Elvira Pastor MD Family History Father Diabetes Hypertension CAD (coronary artery disease) Stroke Mother Diabetes Hypertension CAD (coronary artery disease) Cancer Social History Smoking and tobacco/nicotine status: current every day tobacco/nicotine user cigarettes Packs smoked per day: 0.5 Years cigarettes smoked: 20 Quit status (tobacco/nicotine): has tried quititng Number of times tried to quit tobacco: 3 Second hand smoke exposure: No Alcohol intake: current Alcohol intake frequency: few times a week Alcohol type: beer Substance/Drug Use: never Physical Exam Const: COMMON NORMALS: no acute distress, patient oriented x3, no limitations, alert and well nourished Resp: COMMON NORMALS: normal respiratory effort and No retractions Cardio: COMMON NORMALS: regular rate, regular rhythm and Peripheral pulses 2+ throughout RATE: regular rate RHYTHM: regular rhythm PERIPHERAL PULSES: Peripheral pulses 2+ throughout Extremity: NARRATIVE EXTREMITY EXAM: Right knee with very mild superior edema versus effusion, appears to be maybe a suprapatellar effusion. Minimal joint line tenderness, no tenderness over the patella ligament or tendon as well as over the MCL or LCL. No laxity negative Sage's. No palpable Marina's cyst Neuro: COMMON NORMALS: patient oriented x3 SENSORIUM/ORIENTATION: Yes alert OTHER: Ambulates without difficulty Skin: NARRATIVE SKIN EXAM: Right knee with 4 scars from arthroscopy. Clean dry and intact no erythema, healing Course Vital Signs: Vital signs: Vital Signs Temperature 97.9 F 06/26/24 23:52 Pulse Rate 104 H 06/26/24 23:52 Respiratory Rate 16 06/26/24 23:52 Blood Pressure 149/110 06/26/24 23:52 Pulse Oximetry 98 06/26/24 23:52 Oxygen Delivery Me thod Room Air 06/26/24 23:52 MDM - Extremity (Nontraumatic) Medical Decision Making Knee x-ray reviewed unremarkable, on exam minimal tenderness to palpation. Able to ambulate to the restroom without assistance. Patient advised to put his knee brace back on and follow-up with orthopedics as soon as possible. Medical Records I reviewed the patient's medical records. Lab Data I reviewed the patient's lab results. Radiology Impressions Knee X-Ray 06/27/24 00:50 IMPRESSION: No acute findings. All radiology interpretation(s) finalized by discharge ED provider radiology interpretation(s): No acute abnormality Discharge Plan Discharge Patient Disposition: Home Clinical Impression: Acute pain of right knee, S/P right knee arthroscopy Condition: Stable Prescriptions: New diclofenac sodium 50 mg tablet,delayed release (DR/EC) 50 mg PO TID PRN (Reason: pain) 5 Days Qty: 15 0RF No Action venlafaxine [Effexor XR] 150 mg capsule,extended release 24hr 150 mg PO QAM pantoprazole [Protonix] 40 mg tablet,delayed release (DR/EC) 40 mg PO BID 56 Days Qty: 90 0RF clonazepam 0.5 mg Tablet 0.5 mg PO BID PRN (Reason: Anxiety) methocarbamol 750 mg Tablet 750 mg PO QID PRN (Reason: Muscle Spasm) divalproex 500 mg Tablet Extended Release 24 Hr 1,500 mg PO BEDTIME lidocaine 5 % Adhesive Patch,Medicated 1 patch TOPICAL DAILY Rx Instructions: leave on most painful area for up to 12 hrs ergocalciferol (vitamin D2) 1,250 mcg (50,000 unit) Capsule 1,250 mcg PO Q7D hydrocodone-acetaminophen 5-325 mg tablet 1 tab PO Q8H PRN (Reason: pain) Qty: 14 0RF Rx Instructions: Take 1/2 to 1 tab every 8 hours as needed for pain ondansetron 8 mg tablet,disintegrating 8 mg PO Q6H Qty: 14 0RF Rx Instructions: Take 1/2-1 tab every 6 hours as needed for nausea and vomiting Discharge Orders: Discharge ED (Routine); Ordered 06/27/24 Ordered By: Jama Griffith Referrals: Lisette Grant MD [Primary Care Provider] - Discharge Diet: Usual diet Patient Instructions: Knee Pain (ED) Activity Restrictions/Additional Instructions: Follow-up with Dr. Pastor's office as soon as possible. Stand Alone Forms: Work/School Release Print Language: Arabic Coding Level of Care Code ED Processing Analyst for Robert Escobar
== END 2024-06-27 02:01 | disposition home or self-care (01) ==
PROVIDERS: Emergency Provider Emergency Medicine; PCP Family Medicine
DX: M25.561 Pain in right knee (principal); Z96.651 Presence of right artificial knee joint; F17.210 Nicotine dependence, cigarettes, uncomplicated
CPT/HCPCS: 73562; 99283

== ENCOUNTER → 2024-07-01 09:56 | Outpatient (BNVA) | payer OTHER, SELFPAY | PROVIDERS: PCP Family Medicine; Visit Provider Nurse Practitioner | DX: Z98.890 Other specified postprocedural states (principal) | CPT/HCPCS: 99024 ==

== ENCOUNTER 2024-08-26 10:31 | Outpatient (RCR) | payer OTHER, SELFPAY | END 2024-09-05 23:59 | disposition home or self-care (01) | LOC: SPT 10:31 | PROVIDERS: PCP Family Medicine; Visit Provider Nurse Practitioner | DX: M65.961 Unspecified synovitis and tenosynovitis, right lower leg (principal); M23.306 Other meniscus derangements, unspecified meniscus, right knee | CPT/HCPCS: 97110; 97161 ==

== ENCOUNTER 2024-09-06 05:00 | Outpatient (RCR) | payer OTHER, SELFPAY | END 2024-10-05 06:56 | disposition home or self-care (01) | LOC: SPT 05:00 | PROVIDERS: PCP Family Medicine; Visit Provider Nurse Practitioner | DX: M65.961 Unspecified synovitis and tenosynovitis, right lower leg (principal) | CPT/HCPCS: 97110 ==

== ENCOUNTER → 2024-09-21 09:04 | Outpatient (BNVA) | payer OTHER, SELFPAY | PROVIDERS: PCP Family Medicine; Visit Provider Nurse Practitioner | DX: Z98.890 Other specified postprocedural states (principal) | CPT/HCPCS: 99214 ==

== ENCOUNTER → 2024-09-22 14:18 | Outpatient (BNVA) | payer OTHER, SELFPAY | PROVIDERS: PCP Family Medicine; Referring Provider Family Medicine; Visit Provider Psychiatry & Neurology Neurology | DX: R41.3 Other amnesia (principal) | CPT/HCPCS: 99212 ==

== ENCOUNTER 2024-09-27 23:26 | Emergency (ER) | payer OTHER, SELFPAY ==
[2024-09-27 23:33] VITALS: BP 142/89; PULSE 93; RESP 14; TEMP 36.8; O2SAT 95; BMI 30.9
--- NOTE | 2024-09-28 01:51 | W.ED.WOUNDLC ---
HPI - Wound/Laceration General: Chief Complaint: Wound/Laceration Stated Complaint: Left Arm Infection Time Seen by Provider: 09/28/24 01:14 History of Present Illness: 39-year-old male patient here with increasing redness, swelling, and pain to the left dorsal forearm following being diagnosed with cellulitis at the [place] 3 days ago. No fever. No vomiting. Related Data Home Medications ?Medication ?Instructions ?Recorded ?Confirmed clonazepam 0.5 mg tablet 0.5 mg PO BID PRN Anxiety 07/18/23 09/22/24 divalproex 500 mg tablet,extended 1,500 mg PO BEDTIME 07/18/23 09/22/24 release 24 hr ergocalciferol (vitamin D2) 1,250 1,250 mcg PO Q7D 07/18/23 09/22/24 mcg (50,000 unit) capsule lidocaine 5 % topical patch 1 patch topical DAILY 07/18/23 09/22/24 methocarbamol 750 mg tablet 750 mg PO QID PRN Muscle Spasm 07/18/23 09/22/24 venlafaxine 150 mg 150 mg PO QAM 05/08/24 09/22/24 capsule,extended release 24 hr (Effexor XR) Previous Rx's ?Medication ?Instructions ?Recorded pantoprazole 40 mg tablet,delayed 40 mg PO BID 8 weeks #90 tabs 09/17/23 release (Protonix) ondansetron 8 mg disintegrating 8 mg PO Q6H #14 tabs 02/12/24 tablet celecoxib 100 mg capsule (Celebrex) 100 mg PO BID #180 caps 07/01/24 hydrocodone 5 mg-acetaminophen 325 1 tab PO Q8H PRN pain #5 tabs 09/28/24 mg tablet sulfamethoxazole 800 2 tab PO BID 5 days #20 tabs 09/28/24 mg-trimethoprim 160 mg tablet (Bactrim DS) Allergies Allergy/AdvReac Type Severity Reaction Status Date / Time oxycodone Allergy ADR-Anxiety Verified 09/27/24 23:37 [facility] ED PFSH: Medical History Patellofemoral pain syndrome of right knee Sage sign present in right knee Surgical History S/P right knee arthroscopy Date of procedure: May 19, 2024 Pre-op diagnosis: Right knee internal derangement with chondromalacia Procedure done: Right arthroscopic knee surgery with chondroplasty patella, medial femoral condyle and lateral femoral condyle with significant synovial resection Surgeon: Elvira Pastor MD Family History Father Diabetes Hypertension CAD (coronary artery disease) Stroke Mother Diabetes Hypertension CAD (coronary artery disease) Cancer Social History Smoking and tobacco/nicotine status: current every day tobacco/nicotine user cigarettes Packs smoked per day: 0.5 Years cigarettes smoked: 20 Quit status (tobacco/nicotine): has tried quititng Number of times tried to quit tobacco: 3 Second hand smoke exposure: No Alcohol intake: current Alcohol intake frequency: few times a week Alcohol type: beer Substance/Drug Use: never Physical Exam Const: COMMON NORMALS: no acute distress GENERAL APPEARANCE: cooperative; not ill appearing and not frail appearing HENMT: COMMON NORMALS: normocephalic, atraumatic and Normal external nose present HEAD & SCALP: normocephalic and atraumatic FACE & SINUS: normal facial exam and face symmetric NOSE: Normal external nose present Eye: COMMON NORMALS: Equal, round and reactive pupils present and EOMs intact bilaterally PUPIL: Yes Equal, round and reactive pupils present Neck/C-Spine: GENERAL: Yes trachea midline Chest: CHEST: Yes Symmetrical chest wall rise Resp: COMMON NORMALS: normal respiratory effort, No retractions, No use of accessory muscles and clear to auscultation bilaterally AUSCULTATION: clear to auscultation bilaterally Cardio: COMMON NORMALS: regular rate and regular rhythm RATE: regular rate RHYTHM: regular rhythm Extremity: NARRATIVE EXTREMITY EXAM: Exam of the left forearm reveals a dorsal cutaneous abscess measuring 3 x 3 cm. There is induration. There is some fluctuance. There is no streaking. There is surrounding cellulitis. No intense pain on passive stretch with wrist flexion or elbow extension. Neuro: MARCUS COMA SCALE: document GCS findings Marcus coma scale eye opening: Spontaneous Marcus coma scale verbal response: Orientated Marcus coma scale motor response: Obey commands Page coma scale total score: 15 SENSORY EXAM: Yes extremities (intact) Psych: COMMON NORMALS: speech normal SPEECH: Yes normal speech Procedures Abscess I/D Site: upper extremity Side (if applicable): left Local Anesthetic: lidocaine 1% and with epi Amount of anesthesia used (mL): 7 Technique: incised with #11 blade Amount of fluid expressed (mL): 8 Irrigation: No Packing used?: plain Course Vital Signs: Vital signs: Vital Signs Temperature 98.3 F 09/27/24 23:33 Pulse Rate 91 09/28/24 03:10 Respiratory Rate 17 09/28/24 03:10 Blood Pressure 147/89 09/28/24 03:10 Pulse Oximetry 97 09/28/24 03:10 Oxygen Delivery Me thod Room Air 09/27/24 23:33 MDM - Wound/Laceration Medical Decision Making Cutaneous abscess to the dorsal left forearm. Incised and drained. Small amount of packing placed. He will double his Bactrim, to twice daily. Will give him extra so he can finish it out. He knows to return for worsening symptoms or fever or vomiting. He has small vasovagal type episode that was short-lived while infiltrating with local anesthesia. He recovered quickly. No radiology studies performed this visit Discharge Plan Discharge Patient Disposition: Home Clinical Impression: Abscess Condition: Stable Prescriptions: New sulfamethoxazole-trimethoprim [Bactrim DS] 800-160 mg tablet 2 tab PO BID 5 Days Qty: 20 0RF Continued hydrocodone-acetaminophen 5-325 mg tablet 1 tab PO Q8H PRN (Reason: pain) Qty: 5 0RF Rx Instructions: Take 1/2 to 1 tab every 8 hours as needed for pain No Action venlafaxine [Effexor XR] 150 mg capsule,extended release 24hr 150 mg PO QAM celecoxib [Celebrex] 100 mg capsule 100 mg PO BID Qty: 180 0RF pantoprazole [Protonix] 40 mg tablet,delayed release (DR/EC) 40 mg PO BID 56 Days Qty: 90 0RF clonazepam 0.5 mg Tablet 0.5 mg PO BID PRN (Reason: Anxiety) methocarbamol 750 mg Tablet 750 mg PO QID PRN (Reason: Muscle Spasm) divalproex 500 mg Tablet Extended Release 24 Hr 1,500 mg PO BEDTIME lidocaine 5 % Adhesive Patch,Medicated 1 patch TOPICAL DAILY Rx Instructions: leave on most painful area for up to 12 hrs ergocalciferol (vitamin D2) 1,250 mcg (50,000 unit) Capsule 1,250 mcg PO Q7D ondansetron 8 mg tablet,disintegrating 8 mg PO Q6H Qty: 14 0RF Rx Instructions: Take 1/2-1 tab every 6 hours as needed for nausea and vomiting Discharge Orders: Discharge ED (Routine); Ordered 09/28/24 Ordered By: Anastacio Gonzalez Referrals: Lisette Grant MD [Primary Care Provider, Family Practice] - 1-3 days Patient Instructions: Abscess (ED), Opioid Safety, Pain Management Activity Restrictions/Additional Instructions: Increase your antibiotic to 2 pills twice daily as we discussed. Pain medication for significant pain. You may also take ibuprofen for pain or swelling. Ice may help with swelling. Call your doctor in the morning for follow-up appointment for wound check. Keep area covered, if packing falls out, that is okay, just bandage. Print Language: Ecuadorean Coding Level of Care Code ED Banking Services Advisor for Robert Escobar
[2024-09-28] MEDS: lidocaine-epi 1% 20 mL INJ INJECTION (01:55)
[2024-09-28] MEDS: sulfamethoxazole-trimeth DS 160-800 mg Tablet 1 TAB PO (02:59)
[2024-09-28] MEDS: HYDROcodone-acetaminophen 5-325 mg Tablet 2 TAB PO (02:59)
[2024-09-28 03:10] VITALS: BP 147/89; PULSE 91; RESP 17; O2SAT 97
== END 2024-09-28 03:18 | disposition home or self-care (01) ==
PROVIDERS: Emergency Provider Emergency Medicine; PCP Family Medicine
DX: L02.414 Cutaneous abscess of left upper limb (principal); F17.210 Nicotine dependence, cigarettes, uncomplicated
CPT/HCPCS: 10060; 99283; J9999

== ENCOUNTER 2024-09-30 09:23 | Outpatient (CLI) | payer OTHER, SELFPAY ==
--- NOTE | 2024-09-30 10:15 | MR_ITS ---
WS: [id number] MRI HEAD WITH CONTRAST TECHNIQUE: Sagittal T1, T2 axial, T2 axial FLAIR, axial susceptibility weighted imaging, axial diffusion weighted images, and coronal T2 images were obtained. Pre and post-T1 axial and post T1 coronal images. ADC and FSPGR images. CLINICAL INFORMATION: R41.3 - Other amnesia COMPARISON: MRI 01/13/2024 FINDINGS: No evidence of restricted diffusion to suggest acute ischemia. Ventricular system and basal cisterns are patent. Chiari I malformation unchanged. No hydrocephalus. Normal fourth ventricle. Normal posterior fossa. Normal vascular flow voids at the skull base. No extra-axial fluid collections. No evidence of mass or mass effect. Paranasal sinuses and mastoid air cells are well aerated. No hemosiderin on the susceptibly weighted images. Normal optic chiasm and pituitary infundibulum. No abnormal gadolinium enhancement. Normal dural venous sinuses. MR/MR head wo/w con [id number] IMPRESSION: 1. No evidence of restricted diffusion to suggest acute ischemia. 2. No suspicious intracranial signal abnormalities. 3. Stable Chiari I malformation. 4. No other acute findings.
[2024-09-30] MEDS: gadobenate dimeglumine 20 mL vial IV (10:40)
--- NOTE | 2024-09-30 11:00 | MR_ITS ---
WS: [id number] MRI CERVICAL SPINE NONCONTRAST TECHNIQUE: Sagittal T1, T2 and STIR imaging. Axial T2, gradient, and fiesta imaging. CLINICAL INFORMATION: M54.2 - Cervicalgia COMPARISON: None. FINDINGS: Chiari I malformation. Mild cervical curve. Mild disc bulging C5-C6 and C6-C7. No abnormal gadolinium enhancement. Cord signal appears normal. No high-grade central canal stenosis. C2-C3: Normal. C3-C4: Mild facet arthropathy. Spinal canal is patent. Foramen are patent. C4-C5: Mild disc osteophyte ridging. Mild facet arthropathy. Mild LEFT bony foraminal narrowing. Spinal canal is patent. C5-C6: Central disc osteophyte protrusion. Mild central canal stenosis. Moderate facet arthropathy. Mild to moderate bilateral bony foraminal narrowing. C6-C7: Shallow central disc osteophyte protrusion. Slight indentation on the cervical cord. Mild central canal stenosis. Mild bilateral bony foraminal narrowing. C7-T1: No significant disc bulging. Mild to moderate LEFT and no significant RIGHT foraminal narrowing. Spinal canal is patent. Visualized brain stem structures: Normal. Prevertebral soft tissues: Normal. MR/MR cervical spine wo/w [id number] IMPRESSION: 1. Small disc osteophyte protrusions C5-C6 and C6-C7 with slight indentation o f the cervical cord at C6-C7. Mild central canal stenosis. 2. Mild to moderate bilateral bony foraminal narrowing at C5-C6 and LEFT C7-T1 . 3. Mild foraminal narrowing C6-7. 4. No abnormal gadolinium enhancement.
== END 2024-09-30 09:24 | disposition home or self-care (01) ==
PROVIDERS: PCP Family Medicine; Visit Provider Psychiatry & Neurology Neurology
DX: M48.02 Spinal stenosis, cervical region (principal); R41.3 Other amnesia; S06.9XAA Unspecified intracranial injury with loss of consciousness status unknown, initial encounter; G93.5 Compression of brain; M25.78 Osteophyte, vertebrae; M50.222 Other cervical disc displacement at C5-C6 level; M50.223 Other cervical disc displacement at C6-C7 level; M48.03 Spinal stenosis, cervicothoracic region; M43.8X2 Other specified deforming dorsopathies, cervical region; M50.322 Other cervical disc degeneration at C5-C6 level; M50.323 Other cervical disc degeneration at C6-C7 level; M47.892 Other spondylosis, cervical region; M50.33 Other cervical disc degeneration, cervicothoracic region; X58.XXXA Exposure to other specified factors, initial encounter
CPT/HCPCS: 70553; 72156; A9577

== ENCOUNTER → 2024-12-21 09:36 | Outpatient (BNVA) | payer OTHER, SELFPAY | PROVIDERS: PCP Family Medicine; Visit Provider Nurse Practitioner | DX: R20.8 Other disturbances of skin sensation (principal); Z47.89 Encounter for other orthopedic aftercare | CPT/HCPCS: 99213 ==

== ENCOUNTER 2024-12-30 18:43 | Emergency (ER) | payer OTHER, SELFPAY ==
--- OUTSIDE RECORDS SUMMARY | 2014-06-03 09:43 | XMS_ITS | Continuity of Care Document ---
Author Organization [facility] Address [address] [place] [address] [place] [address] Phone Care Team Providers Care Lab Head Name Role Phone Unavailable Unavailable Unavailable Advance Directives Directive Yes / No Effective Date File Name No Information Encounters Encounter Description Practice Location Reason(s) For Visit Diagnoses Date Provider Providers Copied on Encounter [facility], [address] [place] [place] [address], [id number], [place] tel:[phone] [facility] [place] No Information No Information Family History Family Member Type Diagnosis Age At Onset No Information Payers Payer name Insurance type Covered alliance party ID Authoriza tion(s) No Information Social History Type Description Quantity Date Captured Comments Sex Male Smoking Status No Information Chief Complaint And Reason For Visit No Information Reason For Referral Reason For Referral No Information History Of Present Illness Encounter Date Complaint History Of Prese nt Illness No Information Functional Status Date Functional Assessmen t No Information Instructions Date Instruction Additional Infor mation No Information Assessments Type Assessment Date No Information Patient Care Teams Name Effective Dates (start - stop) Status Members No Information
[2024-12-30] VITALS (8 sets, daily range): BP systolic 122–138; BP diastolic 86–94; PULSE 88–121; TEMP 36.7; O2SAT 89–97; BMI 30.5
--- NOTE | 2024-12-30 19:09 | ED_ITS ---
HPI - Back Pain/Injury 2 General: Chief Complaint: Back Pain/Injury Stated Complaint: flank pain both sides worse with laying down Time Seen by Provider: 12/30/24 18:51 Source: patient Mode of arrival: ambulatory Limitations: no limitations History of Present Illness: Patient is a 39-year-old male who presents the emergency department complaining of bilateral thoracic back pain for the past week. States that he thinks he is having issues with his kidneys as he has a history of kidney stones but that this feels much worse. Pain has been intermittent since, also reports a history of chronic back pain. Pain is nonradiating, no urinary symptoms or changes in bowel habits are noted. No abdominal pain, nausea/vomiting/diarrhea, fevers, chills, chest pain, or shortness of breath. He is tachycardic at this time, likely secondary to pain or dehydration. No other symptoms or pertinent past medical history is noted. Reports taking [id number] pain medications with no relief. He denies needing pain medication at this time. He is not reporting any trauma or overuse injury. MD elicited complaint: back pain Pertinent past history: prior back pain and kidney stones Onset (ago): week(s) Timing: intermittent Severity: severe Similar Symptoms Previously: Yes Location: right upper back and left upper back Radiation: none Associated symptoms: Deny abdominal pain, chills, dysuria, fever(s), nausea, urinary urgency or vomiting Related Data Home Medications ?Medication ?Instructions ?Recorded ?Confirmed clonazepam 0.5 mg tablet 0.5 mg PO BID PRN Anxiety 12/21/24 divalproex 500 mg tablet,extended 1,500 mg PO BEDTIME 07/18/23 12/21/24 release 24 hr ergocalciferol (vitamin D2) 1,250 1,250 mcg PO Q7D 03/0112/21/24 mcg (50,000 unit) capsule lidocaine 5 % topical patch 1 patch topical DAILY 07/0712/21/24 venlafaxine 150 mg 150 mg PO QAM 05/08/2412/21 capsule,extended release 24 hr (Effexor XR) Previous Rx's ?Medication ?Instructions ?Recorded pantoprazole 40 mg tablet,delayed 40 mg PO BID 8 weeks #90 tabs 09/17/23 release (Protonix) ondansetron 8 mg disintegrating 8 mg PO Q6H #14 tabs 1 04/13/23 tablet celecoxib 100 mg capsule (Celebrex) 100 mg PO BID #180 caps 07/01/24 Held on 12/30/24. Instructions: Resume on 01/06/25. hydrocodone 5 mg-acetaminophen 325 1 tab PO Q8H PRN pa in #5 tabs 09/28/24 mg tablet vitamin B comp and C no.3 15 mg-10 1 cap PO BID #180 c aps 12/21/24 mg-50 mg-5 mg-300 mg capsule (B Complex Plus Vitamin C) ketorolac 10 mg tablet 10 mg PO Q8H PRN pain 5 days #15 12/30/24 tabs methocarbamol 750 mg tablet 750 mg PO Q8H 5 days #15 t abs 12/30/24 Allergies Allergy/AdvReac Type Severity Reaction Status Date / Time oxycodone Allergy ADR-Anxiety Verified 12/30/24 18:50 Review of Systems 2 General: Reports: 10 or more systems reviewed and unremarkable except in HPI and below Const: Denies: fever(s), chills, change in appetite, change in weight or diaphoresis ENMT: Denies: throat pain or hoarseness Card: Denies: chest pain, palpitations or lightheadedness Resp: Denies: dyspnea, productive cough or wheezing GI: Denies: abdominal pain, nausea, vomiting, diarrhea, constipation, bloating, change in stool character or hematochezia : Denies: flank pain, difficulty urinating, dysuria, urinary frequency or urinary urgency Musc: Reports: back pain; Denies: neck pain Skin/Breast: Denies: rash or new lesions Neuro: Denies: headache(s) or dizziness PFSH ED 2 PFSH: Medical History Patellofemoral pain syndrome of right knee Sage sign present in right knee Surgical History S/P right knee arthroscopy Date of procedure: May 19, 2024 Pre-op diagnosis: Right knee internal derangement with chondromalacia Procedure done: Right arthroscopic knee surgery with chondroplasty patella, medial femoral condyle and lateral femoral condyle with significant synovial resection Surgeon: Elvira Pastor MD Family History Father Diabetes Hypertension CAD (coronary artery disease) Stroke Mother Diabetes Hypertension CAD (coronary artery disease) Cancer Social History Smoking and tobacco/nicotine status: current every day tobacco/nicotine user cigarettes Packs smoked per day: 0.5 Years cigarettes smoked: 20 Quit status (tobacco/nicotine): has tried quititng Number of times tried to quit tobacco: 3 Second hand smoke exposure: No Alcohol intake: current Alcohol intake frequency: few times a week Alcohol type: beer Substance/Drug Use: never Physical Exam 2 Const: COMMON NORMALS: no acute distress, average body habitus, patient oriented x3, no limitations, healthy appearing, alert and well nourished G ENERAL APPEARANCE: cooperative and comfortable ORIENTATION/CONSCIOUSNESS: Yes awake OTHER: Nontoxic-appearing Eye: COMMON NORMALS: Equal, round and reactive pupils present, EOMs intact bilaterally and conjunctivae normal CONJUNCTIVA: Yes conjunctivae normal P UPIL: Yes Equal, round and reactive pupils present Neck/C-Spine: COMMON NORMALS: full ROM, supple, no meningeal signs and no JVD Resp: COMMON NORMALS: normal respiratory effort, No retractions, No use of accessory muscles and clear to auscultation bilaterally AUSCULTATION: clear to auscultation bilaterally, no crackles, no rales, no rhonchi and no wheezes Cardio: COMMON NORMALS: no JVD, regular rhythm, No gallops present (Cardio), No clicks present (Cardio), No murmurs present (Cardio), No rub (Cardio) and Peripheral pulses 2+ throughout RATE: tachycardic RHYTHM: regular rhythm PERIPHERAL PULSES: Peripheral pulses 2+ throughout GI: COMMON NORMALS: Normal to inspection, nondistended, normoactive bowel sounds present, Soft to palpation, non-tender, No hepatosplenomegaly present and no masses AUSCULTATION: Yes normoactive bowel sounds PALPATION: Yes Soft to palpation, No Guarding due to palpation present (GI), No Rigid due to palpation and Yes No hepatosplenomegaly present RECTAL EXAM: Yes deferred : COMMON NORMALS: Yes no CVA tenderness BLADDER/KIDNEY EXAM: Yes no CVA tenderness Back/Pelvis: COMMON NORMALS: no CVA tenderness Extremity: COMMON NORMALS: normal to inspection and full ROM Neuro: COMMON NORMALS: patient oriented x3, moves all extremities, no focal motor deficits and no sensory deficits noted SENSORIUM/ORIENTATION: Yes alert MENINGEAL SIGNS: Yes no meningeal signs Psych: COMMON NORMALS: mental status grossly normal, cooperative and speech normal SPEECH: Yes normal speech Skin: COMMON NORMALS: no rashes or lesions noted GENERAL SKIN EXAM: no rashes or lesions noted Course 2 Vital Signs: Vital signs: Vital Signs Temperature 98.0 F 12/30/24 18:45 Pulse Rate 93 12/30/24 21:30 Blood Pressure 129/90 12/30/24 21:00 Pulse Oximetry 89 L 12/30/24 21:30 Oxygen Delivery Me thod Room Air 12/30/24 20:00 MDM - Back Pain/Injury Medical Decision Making This patient presented with bilateral mid back pain, atraumatic has been bothering for a week. No other associated symptoms are reported however, does report history of kidney stones but that this pain is more severe. History of lumbar back surgery. Physical exam overall was reassuring, there was no significant reproducible pain, and overall he was nontoxic-appearing. Initially tachycardic on arrival, likely secondary to pain and this was normalized after receiving Toradol through IV here. Also was administered some fluids and labs were drawn. CBC, CMP were unremarkable. Lipase was normal, urinalysis does not show any signs of infection or indications that there is a stone as there is no blood in his urine. He is rechecked and states that the pain is still present, and this was prior to administering Toradol as initially he denied pain medication, and CT abdomen and pelvis without contrast does not reveal any acute abnormalities or explanation for his pain. He is encouraged to follow-up with primary care, will treat pain with Toradol and Robaxin for home and strict return precautions given. Suspect musculoskeletal back pain at this time. Labs 12/30/24 19:14 12/30/24 19:14 Radiology Impressions Abdomen/Pelvis CT 12/30/24 20:04 IMPRESSION: Findings of thickening of the renal pelvis ureters correlate with urinalysis to exclude infectious pyelitis. Nonobstructing left renal caliceal calculi Findings of fatty infiltration of the liver Incidental inferior hilar adenopathy in the lower thorax differential to consider would include lymphoproliferative disorder or os diagnosis of exclusion entities such as sarcoidosis if other etiologies of adenopathy being clinically excluded. Calyceal for workup in this regard. Noncalcified 3 mm left lower lobe pulmonary nodule for follow-up guidelines see below statement: For patients at low risk (minimal or absent history of smoking and of other known risk factors), no routine follow-up is indicated. For patients at high risk (history of smoking or of other known risk factors), consider optional CT Chest at 12 months. (Reference: Steven) References: Steven Burns, et al. Guidelines for Management of Incidental Pulmonary Nodules Detected on CT Images: From the Fleischner Society 2017. Radiology. 2017;284(1):228-243. Laboratory Results WBC 9.56 10^3/uL (3.29-11.43) 12/30/24 19:14 RBC 5.95 10^6/uL (3.85-5.65) H 12/30/24 19:14 Hgb 17.00 g/dL (11.27-16.99) H 12/30/24 19:14 Hct 48.7 % (37-53) 12/30/24 19:14 MCV 81.8 fl (82-101) L 12/30/24 19:14 MCH 28.6 pg (27-33) 12/30/24 19:14 MCHC 34.9 g/dL (30-55) 12/30/24 19:14 RDW 12.9 % (12.1-15.1) 12/30/24 19:14 Plt Count 361 10^3/cmm (157-399) 12/30/24 19:14 MPV 8.9 fL (7.4-10.4) 12/30/24 19:14 Neut % (Auto) 59.4 % 12/30/24 19:14 Lymph % (Auto) 28.1 % 12/30/24 19:14 Rush % (Auto) 7.9 % 12/30/24 19:14 Eos % (Auto) 2.6 % 12/30/24 19:14 Baso % (Auto) 0.6 % 12/30/24 19:14 Neut # (Auto) 5.67 10^3/uL (1.8-7.7) 12/30/24 19:14 Lymph # (Auto) 2.7 10^3/uL (0.8-4.8) 12/30/24 19:14 Rush # (Auto) 0.8 10^3/uL (0.2-0.9) 12/30/24 19:14 Eos # (Auto) 0.3 10^3/uL (0.0-0.8) 12/30/24 19:14 Baso # (Auto) 0.1 10^3/uL (0.0-0.1) 12/30/24 19:14 Nucleated RBC % (auto) 0 % 12/30/24 19:14 Nucleated RBCs # 0.0 /100WBC 12/30/24 19:14 Sodium 137 mmol/L (136-145) 12/30/24 19:14 Potassium 4.1 mmol/L (3.5-5.1) 12/30/24 19:14 Chloride 98 mmol/L (98-107) 12/30/24 19:14 Carbon Dioxide 27 mmol/L (22-29) 12/30/24 19:14 Anion Gap 16.1 (5-19) 12/30/24 19:14 BUN 18 mg/dL (6-20) 12/30/24 19:14 Creatinine 0.8 mg/dL (0.7-1.2) 12/30/24 19:14 GFR Calculation 107.1 mL/min (90-130) 12/30/24 19:14 Glucose 106 mg/dL (65-115) 12/30/24 19:14 Calculated Osmolality 286 mOsm/kg (285-295) 12/30/24 19:14 Calcium 9.9 mg/dL (8.5-10.5) 12/30/24 19:14 Total Bilirubin 0.5 mg/dL (0.15-1.2) 12/30/24 19:14 AST 26 U/L (0-40) 12/30/24 19:14 ALT 39 U/L (0-41) 12/30/24 19:14 Alkaline Phosphatase 102 U/L (40-130) 12/30/24 19:14 Total Protein 8.2 g/dL (6.6-8.7) 12/30/24 19:14 Albumin 4.6 g/dL (3.5-5.2) 12/30/24 19:14 Globulin 3.6 g/dL (1.3-4.6) 12/30/24 19:14 Lipase 44 U/L (13-60) 12/30/24 19:14 Urine Color Yellow (Yellow) 12/30/24 19:26 Urine Appearance Clear (CLEAR) 12/30/24 19:26 Urine pH 5.5 (5-7) 12/30/24 19:26 Ur Specific [place] 1.011 (1.005-1.030) 12/30/24 19:26 Urine Protein Negative (Negative) 12/30/24 19:26 Urine Glucose (UA) Negative (Normal) 12/30/24 19:26 Urine Ketones Negative (Negative) 12/30/24 19:26 Urine Blood Trace (Negative) A 12/30/24 19:26 Urine Nitrate Negative (Negative) 12/30/24 19:26 Urine Bilirubin Negative (Negative) 12/30/24 19:26 Urine Urobilinogen 1.0 mg/dL (Negative) 12/30/24 19:26 Ur Leukocyte Esterase Negative (Negative) 12/30/24 19:26 Urine RBC 0-2 /hpf (0-2) 12/30/24 19:26 Urine WBC 0-5 /hpf (0-5) 12/30/24 19:26 Ur Squamous Epith Cells 0-5 /hpf (0-5) 12/30/24 19:26 Amorphous Sediment Not Reportable 12/30/24 19:26 Urine Bacteria None seen /hpf (NONE) 12/30/24 19:26 Hyaline Casts 0.40 /lpf 12/30/24 19:26 All radiology interpretation(s) finalized by discharge Discharge Plan Discharge Patient Disposition: Home Clinical Impression: Musculoskeletal back pain Condition: Stable Prescriptions: New ketorolac 10 mg tablet 10 mg PO Q8H PRN (Reason: pain) 5 Days Qty: 15 0RF methocarbamol 750 mg tablet 750 mg PO Q8H 5 Days Qty: 15 0RF Held celecoxib [Celebrex] 100 mg capsule 100 mg PO BID Qty: 180 0RF Hold Instructions: Resume on 01/06/25. Discontinued methocarbamol 750 mg Tablet 750 mg PO QID PRN (Reason: Muscle Spasm) No Action B Complex Plus Vitamin C [id number] mg capsule 1 cap PO BID Qty: 180 0RF Rx Instructions: give with food (meal/snack) venlafaxine [Effexor XR] 150 mg capsule,extended release 24hr 150 mg PO QAM pantoprazole [Protonix] 40 mg tablet,delayed release (DR/EC) 40 mg PO BID 56 Days Qty: 90 0RF clonazepam 0.5 mg Tablet 0.5 mg PO BID PRN (Reason: Anxiety) divalproex 500 mg Tablet Extended Release 24 Hr 1,500 mg PO BEDTIME lidocaine 5 % Adhesive Patch,Medicated 1 patch TOPICAL DAILY Rx Instructions: leave on most painful area for up to 12 hrs ergocalciferol (vitamin D2) 1,250 mcg (50,000 unit) Capsule 1,250 mcg PO Q7D ondansetron 8 mg tablet,disintegrating 8 mg PO Q6H Qty: 14 0RF Rx Instructions: Take 1/2-1 tab every 6 hours as needed for nausea and vomiting hydrocodone-acetaminophen 5-325 mg tablet 1 tab PO Q8H PRN (Reason: pain) Qty: 5 0RF Rx Instructions: Take 1/2 to 1 tab every 8 hours as needed for pain Discharge Orders: Discharge ED (Routine); Ordered 12/30/24 Ordered By: Jourdan Smith Referrals: Lisette Grant MD [Primary Care Provider, Family Practice] Patient Instructions: Patient Portal & Augie Instructions Activity Restrictions/Additional Instructions: Musculoskeletal Pain Discharge Discharge Instructions: Bilateral Parathoracic Musculoskeletal Pain Diagnosis and Rationale: The patient is a 39-year-old male presenting with bilateral parathoracic pain, suspected to be musculoskeletal in origin. Laboratory evaluation (CBC, CMP, urinalysis) and CT imaging were unremarkable, excluding renal or other visceral causes. Pharmacologic Management: - Ketorolac (Toradol): - NSAIDs are recommended as first-line pharmacologic therapy for acute musculoskeletal pain, with evidence supporting their efficacy for short-term pain relief. - Prescribe oral ketorolac at the lowest effective dose for the shortest duration necessary, typically not exceeding 5 days due to risk of gastrointestinal and renal adverse effects. - Assess for contraindications (history of peptic ulcer disease, renal impairment, bleeding disorders, or concurrent anticoagulant use). - Exchange Teller on potential side effects: dyspepsia, GI bleeding, renal dysfunction, and allergic reactions. - Methocarbamol (Robaxin): - Skeletal muscle relaxants may provide additional short-term pain relief in acute musculoskeletal injury, though sedation and SHIP CEILER effects are possible. - Methocarbamol has demonstrated opioid-sparing effects in thoracic musculoskeletal pain and rib fractures. - Advise on possible side effects: drowsiness, dizziness, and avoid operating heavy machinery or driving while taking this medication. Nonpharmacologic Management: - Encourage maintenance of normal activity as tolerated; bed rest is not recommended. - Consider gentle stretching and strengthening exercises, as exercise therapy has moderate to strong evidence for improving pain and function in musculoskeletal pain syndromes. - Application of heat or ice may provide symptomatic relief. - Educate regarding the benign nature of musculoskeletal pain and expected gradual improvement. Follow-Up: - Schedule follow-up with primary care or musculoskeletal specialist within 1?2 weeks, or sooner if symptoms worsen or do not improve. - If pain persists beyond 4?6 weeks, or if there is functional limitation, consider referral for physical therapy or further evaluation. Return Precautions: - Advise immediate return for any of the following: - New or worsening neurological symptoms (weakness, numbness, loss of bowel/bladder control) - Fever, chills, or signs of systemic illness - Severe, unremitting pain not responsive to prescribed therapy - Signs of adverse drug reactions (e.g., GI bleeding: black/tarry stools, hematemesis; allergic reaction: rash, swelling, difficulty breathing) - Any new symptoms suggestive of visceral pathology Patient Education: - Reinforce safe use of medications, including avoidance of alcohol and other SHIP CEILER depressants while taking methocarbamol. - Advise on gradual tapering and discontinuation of analgesics as pain improves. - Exchange Teller on the expected course of musculoskeletal pain and the importance of activity and self-management strategies. Summary: This management plan is consistent with current best practice guidelines for acute musculoskeletal pain, emphasizing multimodal therapy, patient education, and close follow-up. Print Language: Latvian Coding Level of Care Code ED Forming Roll Operator Heavy Duty for Robert Escobar
[2024-12-30 19:20] LABS: Hematocrit 48.7 % (37-53); Hemoglobin 17.00 g/dL (11.27-16.99); Mean Corpuscular HGB Conc 34.9 g/dL (30-55); Mean Corpuscular Hemoglobin 28.6 pg (27-33); Mean Corpuscular Volume 81.8 fl (82-101); Nucleated Red Blood Cells % 0 %; Platelet Count 361 10^3/cmm (157-399); Red Blood Count 5.95 10^6/uL (3.85-5.65); White Blood Count 9.56 10^3/uL (3.29-11.43)
[2024-12-30 19:34] LABS: Glucose Urine UA Negative (Normal); Nitrate Urine Negative (Negative); Specific Gravity, Urine 1.011 (1.005-1.030)
[2024-12-30 19:38] LABS: Alanine Aminotransferase 39 U/L (0-41); Albumin Level 4.6 g/dL (3.5-5.2); Alkaline Phosphatase 102 U/L (40-130); Aspartate Amino Transferase 26 U/L (0-40); Blood Urea Nitrogen 18 mg/dL (6-20); Calcium 9.9 mg/dL (8.5-10.5); Carbon Dioxide 27 mmol/L (22-29); Chloride 98 mmol/L (98-107); Creatinine Clr Calc Pharmacy 151.7069; Globulin 3.6 g/dL (1.3-4.6); Glucose 106 mg/dL (65-115); Lipase 44 U/L (13-60); Osmolality Calculated 286 mOsm/kg (285-295); Sodium 137 mmol/L (136-145); Total Protein 8.2 g/dL (6.6-8.7)
[2024-12-30 19:38] LABS: Add Urine Microscopic? YES
[2024-12-30 20:01] LABS: Anion Gap 16.1 (5-19); Potassium 4.1 mmol/L (3.5-5.1)
--- NOTE | 2024-12-30 20:04 | CTR_ITS ---
PROCEDURE INFORMATION: Exam: CT Abdomen And Pelvis Without Contrast Exam date and time: 12/30/2024 8:17 PM Age: 39 years old Clinical indication: Abdominal pain; Prior surgery; Surgery date: 6+ months; Surgery type: Appy; Additional info: Bilateral back/flank TECHNIQUE: Imaging protocol: Computed tomography of the abdomen and pelvis without contrast. Radiation optimization: All CT scans at this facility use at least one of these dose optimization techniques: automated exposure control; mA and/or kV adjustment per patient size (includes targeted exams where dose is matched to clinical indication); or iterative reconstruction. COMPARISON: CT abdomen pelvis w con* [id number] 02/12/2024 1:07 PM RADIATION DOSE METRICS: Total DLP (mGy-cm): 964.63 FINDINGS: Lungs: There is demonstration of a 3 mm noncalcified pulmonary nodule left lower lobe image 28 series 3. Coronary arteries: No significant coronary artery calcifications present. Liver: Diffuse fatty infiltration of the liver demonstrated. Gallbladder and biliary ducts: Unremarkable. No calcified stones. No ductal dilation. Pancreas: Unremarkable. No ductal dilation. Spleen: Unremarkable. No splenomegaly. Adrenal glands: Normal. No mass. Kidneys and ureters: There is no obstructing stone or hydronephrosis . There is thickening of the renal pelvis ureters correlate with urinalysis to exclude infection. 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 Stomach and bowel: Bowel demonstrates no obstruction Appendix: The appendix was not visualized, no inflammatory changes present right lower quadrant. Intraperitoneal space: There is no intra abdominopelvic free air or free fluid present. Vasculature: Unremarkable. No abdominal aortic aneurysm. Lymph nodes: There is demonstration of 2.5 cm right inferior hilar adenopathy. There is left inferior 3 cm adenopathy present. There are findings of gastroesophageal junction 1.1 cm adenopathy. Urinary bladder: The bladder is underdistended and appears thickened, findings likely related to artifactual thickening from nondistention. Reproductive: Unremarkable as visualized. Bones/joints: Patient is status post fusion L5-S1 right posterior elements. Soft tissues: Unremarkable. Other findings: There are findings of nonobstructing left midpole caliceal calculi present largest [address]/CT kidney stone [id number] IMPRESSION: Findings of thickening of the renal pelvis ureters correlate with urinalysis to exclude infectious pyelitis. Nonobstructing left renal caliceal calculi Findings of fatty infiltration of the liver Incidental inferior hilar adenopathy in the lower thorax differential to consider would include lymphoproliferative disorder or os diagnosis of exclusion entities such as sarcoidosis if other etiologies of adenopathy being clinically excluded. Calyceal for workup in this regard. Noncalcified 3 mm left lower lobe pulmonary nodule for follow-up guidelines see below statement: For patients at low risk (minimal or absent history of smoking and of other known risk factors), no routine follow-up is indicated. For patients at high risk (history of smoking or of other known risk factors), consider optional CT Chest at 12 months. (Reference: Steven) References: Steven H, et al. Guidelines for Management of Incidental Pulmonary Nodules Detected on CT Images: From the Fleischner Society 2017. Radiology. 2017;284(1):228-243.
== END 2024-12-30 21:59 | disposition home or self-care (01) ==
PROVIDERS: Emergency Provider Physician Assistant; PCP Family Medicine
DX: M54.89 Other dorsalgia (principal); F17.210 Nicotine dependence, cigarettes, uncomplicated
CPT/HCPCS: 74176; 80053; 81001; 83690; 85025; 96361; 96374; 99285; J1885; J7040

== ENCOUNTER 2025-03-18 22:29 | Emergency (ER) | payer OTHER, SELFPAY ==
[2025-03-18 22:32] VITALS: BP 148/100; PULSE 117; RESP 16; TEMP 36.8; O2SAT 96; BMI 30.2
--- NOTE | 2025-03-18 23:52 | XRR_ITS ---
PROCEDURE INFORMATION: Exam: XR Right Hand Exam date and time: 03/19/2025 12:53 AM Age: 40 years old Clinical indication: Injury or trauma; Other: Cut on t post; Laceration; Hand; Right; Additional info: Lacertion TECHNIQUE: Imaging protocol: Radiologic exam of the right hand. Views: 3 or more views. COMPARISON: No relevant prior studies available. FINDINGS: Bones/joints: Normal. Soft tissues: No retained radiopaque foreign bodies are noted. XR/XR hand RT min 3V* [id number] IMPRESSION: No retained radiopaque foreign bodies are noted. No acute osseous abnormality.
[2025-03-18] MEDS: tetanus-dipt-pertussis 0.5 mL SDV IM (23:57)
[2025-03-18] MEDS: lidocaine 2% INJ 20 mL INJECTION (23:58)
[2025-03-19 00:03] VITALS: BP 152/106; PULSE 100; O2SAT 95
--- NOTE | 2025-03-19 00:53 | W.ED.WOUNDLC ---
HPI - Wound/Laceration General: Chief Complaint: Wound/Laceration Stated Complaint: lac right hand Time Seen by Provider: 03/18/25 23:53 History of Present Illness: Patient is a 40-year-old gentleman without medical history that presents to the emergency room due to right hand laceration. Patient was chasing after his cat, fell over a minh wire fence, and his hand on the T-bar, where the T-bar twisted, and lacerated his right hyperthenar. He has full movement of his hand. He has a laceration. This occurred just prior to arrival. No LOC. No other injury. Tetanus is not up-to-date. Associated symptoms: Denies chills, fever(s), nausea or vomiting Related Data Home Medications ?Medication ?Instructions ?Recorded ?Confirmed clonazepam 0.5 mg tablet 0.5 mg PO BID PRN Anxiety 07/18/23 12/21/24 divalproex 500 mg tablet,extended 1,500 mg PO BEDTIME 07/18/23 12/21/24 release 24 hr ergocalciferol (vitamin D2) 1,250 1,250 mcg PO Q7D 07/18/23 12/21/24 mcg (50,000 unit) capsule lidocaine 5 % topical patch 1 patch topical DAILY 07/18/23 12/21/24 venlafaxine 150 mg 150 mg PO QAM 05/08/24 12/21/24 capsule,extended release 24 hr (Effexor XR) Previous Rx's ?Medication ?Instructions ?Recorded pantoprazole 40 mg tablet,delayed 40 mg PO BID 8 weeks #90 tabs 09/17/23 release (Protonix) ondansetron 8 mg disintegrating 8 mg PO Q6H #14 tabs 02/12/24 tablet celecoxib 100 mg capsule (Celebrex) 100 mg PO BID #180 caps 07/01/24 Held on 12/30/24. Instructions: Resume on 01/06/25. hydrocodone 5 mg-acetaminophen 325 1 tab PO Q8H PRN pain #5 tabs 09/28/24 mg tablet vitamin B comp and C no.3 15 mg-10 1 cap PO BID #180 caps 12/21/24 mg-50 mg-5 mg-300 mg capsule (B Complex Plus Vitamin C) cephalexin 500 mg capsule 500 mg PO TID 10 days #30 caps 03/19/25 Allergies Allergy/AdvReac Type Severity Reaction Status Date / Time oxycodone Allergy ADR-Anxiety Verified 12/30/24 18:50 Review of Systems General: Reports: 10 or more systems reviewed and unremarkable except in HPI and below Const: Denies: fever(s), chills, change in appetite, change in weight or diaphoresis ENMT: Denies: throat pain or hoarseness Card: Denies: chest pain, palpitations or lightheadedness Resp: Denies: dyspnea, productive cough or wheezing GI: Denies: abdominal pain, nausea, vomiting, diarrhea, constipation, bloating, change in stool character or hematochezia : Denies: flank pain, difficulty urinating, dysuria, urinary frequency or urinary urgency Musc: Reports: extremity pain, joint pain, joint swelling, joint redness, joint stiffness and limited range of motion; Denies: neck pain, back pain or joint warmth Skin/Breast: Denies: rash or new lesions Neuro: Denies: headache(s), numbness in extremities, weakness in extremities, sensory changes or dizziness PFSH ED PFSH: Medical History (Updated 03/19/25 @ 00:59 by VICENTE Joe) Patellofemoral pain syndrome of right knee Sage sign present in right knee Surgical History S/P right knee arthroscopy Date of procedure: May 19, 2024 Pre-op diagnosis: Right knee internal derangement with chondromalacia Procedure done: Right arthroscopic knee surgery with chondroplasty patella, medial femoral condyle and lateral femoral condyle with significant synovial resection Surgeon: Elvira Pastor MD Family History Father Diabetes Hypertension CAD (coronary artery disease) Stroke Mother Diabetes Hypertension CAD (coronary artery disease) Cancer Social History Smoking and tobacco/nicotine status: current every day tobacco/nicotine user cigarettes Packs smoked per day: 0.5 Years cigarettes smoked: 20 Quit status (tobacco/nicotine): has tried quititng Number of times tried to quit tobacco: 3 Second hand smoke exposure: No Alcohol intake: current Alcohol intake frequency: few times a week Alcohol type: beer Substance/Drug Use: never Physical Exam Const: COMMON NORMALS: no acute distress, average body habitus, patient oriented x3, no limitations, healthy appearing, alert and well nourished GENERAL APPEARANCE: cooperative and comfortable ORIENTATION/CONSCIOUSNESS: Yes awake OTHER: Nontoxic-appearing Eye: COMMON NORMALS: Equal, round and reactive pupils present, EOMs intact bilaterally and conjunctivae normal CONJUNCTIVA: Yes conjunctivae normal PUPIL: Yes Equal, round and reactive pupils present Neck/C-Spine: COMMON NORMALS: full ROM, supple, no meningeal signs and no JVD Resp: COMMON NORMALS: normal respiratory effort, No retractions, No use of accessory muscles and clear to auscultation bilaterally AUSCULTATION: clear to auscultation bilaterally, no crackles, no rales, no rhonchi and no wheezes Cardio: COMMON NORMALS: no JVD, regular rhythm, No gallops present (Cardio), No clicks present (Cardio), No murmurs present (Cardio), No rub (Cardio) and Peripheral pulses 2+ throughout RATE: tachycardic RHYTHM: regular rhythm PERIPHERAL PULSES: Peripheral pulses 2+ throughout GI: COMMON NORMALS: Normal to inspection, nondistended, normoactive bowel sounds present, Soft to palpation, non-tender, No hepatosplenomegaly present and no masses AUSCULTATION: Yes normoactive bowel sounds PALPATION: Yes Soft to palpation, No Guarding due to palpation present (GI), No Rigid due to palpation and Yes No hepatosplenomegaly present RECTAL EXAM: Yes deferred : COMMON NORMALS: Yes no CVA tenderness BLADDER/KIDNEY EXAM: Yes no CVA tenderness Back/Pelvis: COMMON NORMALS: no CVA tenderness Extremity: COMMON NORMALS: normal to inspection and full ROM Neuro: COMMON NORMALS: patient oriented x3, moves all extremities, no focal motor deficits and no sensory deficits noted SENSORIUM/ORIENTATION: Yes alert MENINGEAL SIGNS: Yes no meningeal signs Psych: COMMON NORMALS: mental status grossly normal, cooperative and speech normal SPEECH: Yes normal speech Skin: COMMON NORMALS: no rashes or lesions noted GENERAL SKIN EXAM: no rashes or lesions noted Procedures Laceration Laceration 1: Site: upper extremity (rt) Side (If applicable): right Size (cm): 4 Description: linear Depth: simple, single layer Local Anesthetic: lidocaine 1% Amount of anesthesia used (mL): 8 Pre-repair: wound explored, irrigated extensively (500 mL) and deep structures intact Skin layer closed with: nylon Size (cm): 3-0 Number of sutures: 6 Technique: simple, interrupted Course Vital Signs: Vital signs: Vital Signs Temperature 98.2 F 03/18/25 22:32 Pulse Rate 100 03/19/25 00:03 Respiratory Rate 16 03/18/25 22:32 Blood Pressure 152/106 03/19/25 00:03 Pulse Oximetry 95 03/19/25 00:03 Oxygen Delivery Me thod Room Air 03/18/25 22:32 MDM - Wound/Laceration Medical Decision Making Patient is a 40-year-old gentleman that presents to the emergency room after a right hand laceration on the T-bar just next to his barbed wire fence. He was chasing his cat, when he fell over the barbed wire fence, and cut himself lacerating his hyperthenar on the right hand. His x-ray on my view does not show any foreign bodies, and contusion is present. He required 6 sutures, for closure. There is minimal debridement. His hand was considered dirty, and therefore it was grossly cleaned with soaking, and 500 mL vigorously washed. Patient tolerated well with 6 mL of anesthesia/lidocaine. Will place him on a full course of antibiotics given the fact this is considered dirty. All of his questions answered satisfaction. I recommended he remove the sutures in 10 days. XR interpretation done by ED provider, pending radiology final review ED provider radiology interpretation(s): No acute findings Discharge Plan Discharge Patient Disposition: Home Clinical Impression: Laceration Condition: Stable Prescriptions: New cephalexin 500 mg capsule 500 mg PO TID 10 Days Qty: 30 0RF No Action B Complex Plus Vitamin C [id number] mg capsule 1 cap PO BID Qty: 180 0RF Rx Instructions: give with food (meal/snack) venlafaxine [Effexor XR] 150 mg capsule,extended release 24hr 150 mg PO QAM celecoxib [Celebrex] 100 mg capsule 100 mg PO BID Qty: 180 0RF pantoprazole [Protonix] 40 mg tablet,delayed release (DR/EC) 40 mg PO BID 56 Days Qty: 90 0RF clonazepam 0.5 mg Tablet 0.5 mg PO BID PRN (Reason: Anxiety) divalproex 500 mg Tablet Extended Release 24 Hr 1,500 mg PO BEDTIME lidocaine 5 % Adhesive Patch,Medicated 1 patch TOPICAL DAILY Rx Instructions: leave on most painful area for up to 12 hrs ergocalciferol (vitamin D2) 1,250 mcg (50,000 unit) Capsule 1,250 mcg PO Q7D ondansetron 8 mg tablet,disintegrating 8 mg PO Q6H Qty: 14 0RF Rx Instructions: Take 1/2-1 tab every 6 hours as needed for nausea and vomiting hydrocodone-acetaminophen 5-325 mg tablet 1 tab PO Q8H PRN (Reason: pain) Qty: 5 0RF Rx Instructions: Take 1/2 to 1 tab every 8 hours as needed for pain Discharge Orders: Discharge ED (Routine); Ordered 03/19/25 Ordered By: Amber Barragan Referrals: Lisette Grant MD [Primary Care Provider, Family Practice] Discharge Diet: Usual diet Discharge Activity: Resume usual activity Patient Instructions: Laceration (ED), Patient Portal & Augie Instructions Activity Restrictions/Additional Instructions: - You are updated on your tetanus today -Remove your sutures in 10 days - Antibiotics at the pharmacy: Cephalexin. Take 3 times a day. Utilize a probiotic or eat daily active culture yogurt to avoid infectious diarrhea - Ibuprofen and Tylenol for pain - Make sure you ice this area - Return to ED if you have redness outside of the area, increasing drainage fever greater 100.4 ?F Thank you for choosing [facility] for your healthcare needs today. You have been screened and evaluated and felt safe for discharge. Health conditions do change or evolve sometimes and as such it is important that you follow up with your Primary Doctor to be re checked, 3-5 days is a general good time frame for follow up. You are always welcome to return to the ED for re assessment if your symptoms are worsening or you have new concerns Print Language: Kiswahili Coding Level of Care Code ED Advice Clerk for Robert Escobar
[2025-03-19 01:21] VITALS: BP 130/93; PULSE 80; O2SAT 95
== END 2025-03-19 01:27 | disposition home or self-care (01) ==
PROVIDERS: Emergency Provider Physician Assistant; PCP Family Medicine
DX: S61.411A Laceration without foreign body of right hand, initial encounter (principal); F17.210 Nicotine dependence, cigarettes, uncomplicated; W26.8XXA Contact with other sharp object(s), not elsewhere classified, initial encounter
CPT/HCPCS: 12002; 73130; 90471; 90715; 99283; J9999